=== PATIENT | male | born 1955 | race Hispanic/Latino ===

== ENCOUNTER → 2018-04-26 | Day surgery (SDC) | payer BC ==
[~2018-04-26] MED LIST: ATORVASTATIN CA10 MG PO; DOXAZOSIN MESYLA1 MG PO; FENTANYL CITRATE/PF 100MCG/2 ML INJ ONE; FINASTERIDE5 MG PO; GLIMEPIRIDE4 MG PO; HYOSCYAMINE SULFATE 0.5 MG/ML INJ ONE; KEFLEX500 MG PO; LANTUS100 UNITS/ SQ; LEVEMIR100 UNIT/1 SC; LISINOPRIL40 MG PO; METOPROLOL SUCC25 MG PO; METOPROLOL TART25 MG PO; MIDAZOLAM HCL 2 MG/2 ML VIAL ONE; NOVOLOG100 UNITS/ SQ; PROPOFOL IV EMULSION 10 MG/ML 50 ML VIAL ONE; SIMVASTATIN40 MG PO; TAMSULOSIN HCL0.4 MG PO
[2018-04-26 13:35] VITALS: BP 104/76
--- NOTE | 2018-04-26 13:46 | Operative Report ---
DATE OF PROCEDURE: April 26, 2018 REFERRING PHYSICIAN: Dr. Debbie Shirley. PROCEDURE PERFORMED: Colonoscopy and polypectomy. INDICATIONS FOR COLONOSCOPY: Surveillance colonoscopy, personal history of colon polyps. MEDICATION: Patient was done under MAC. Please see anesthesiologist's note. PROCEDURE: With patient in left lateral decubitus position, flexible fiberoptic Olympus colonoscope was inserted into the rectum with ease and advanced all the way to the cecum. It was then withdrawn slowly. Mucosa overlying the cecum, ascending colon and transverse colon appeared to be within normal limits. Diverticulosis was noted in the left colon and more prominent in the sigmoid colon. Two minute polyps were hot biopsied from the sigmoid colon. The rectum appeared to be within normal limits. The scope was then retroflexed into the distal rectum and small internal hemorrhoids were noted, none of which was actively bleeding. The scope was then straightened out. It was subsequently withdrawn. Patient tolerated the procedure well. IMPRESSIONS 1. Diverticulosis. 2. Sigmoid colon polyps x2, hot biopsied. 3. Internal hemorrhoids, none actively bleeding. PLAN: Follow up histology. Initiate high-fiber, low-fat diet. Initiate high-fiber supplement. Patient might benefit from a followup colonoscopy in 3 to 5 years. Job#: [id number] TA cc:DEBBIE SHIRLEY MD,
== END | disposition home or self-care (01) ==
LOC: ENDO 09:00
PROVIDERS: ATTEND Internal Medicine Gastroenterology
DX: Z09 Encounter for follow-up examination after completed treatment for conditions other than malignant neoplasm (principal); K63.5 Polyp of colon; K57.30 Diverticulosis of large intestine without perforation or abscess without bleeding; K64.8 Other hemorrhoids; I10 Essential (primary) hypertension; E11.9 Type 2 diabetes mellitus without complications; I44.0 Atrioventricular block, first degree; E78.00 Pure hypercholesterolemia, unspecified; Z01.810 Encounter for preprocedural cardiovascular examination; Z79.4 Long term (current) use of insulin; Z68.34 Body mass index [BMI] 34.0-34.9, adult
CPT/HCPCS: 36415; 45384; 82948; 93005; J1980; J2250; 45378

== ENCOUNTER → 2018-11-06 | Day surgery (SDC) | payer BC ==
[2018-10-30 09:10] LABS: BASOPHILS % 0.4 % (0.0-1.0); EOSINOPHILS # (AUTO) 0.2 (0.0-0.4); EOSINOPHILS % 3.4 % (0.0-6.0); HEMATOCRIT 46.2 % (38.2-49.6); HEMOGLOBIN 15.2 g/dL (14.0-18.0); LYMPHOCYTES # (AUTO) 2.7 (1.0-3.2); LYMPHOCYTES % 39.1 % (18.0-39.1); MEAN CORPUSCULAR HEMOGLOBIN 28.5 pg (28-32); MEAN CORPUSCULAR HGB CONC 32.9 g/dL (31-35); MEAN CORPUSCULAR VOLUME 86.7 fL (81-99); MONOCYTES # (AUTO) 0.4 (0.2-0.8); MONOCYTES % 6.4 % (4.4-11.3); NEUTROPHILS # (AUTO) 3.5 (2.1-6.9); NEUTROPHILS % 50.6 % (38.7-80.0); PLATELET COUNT 191 x10e3/uL (140-360); RED BLOOD COUNT 5.33 x10e6/uL (4.3-5.7); RED CELL DISTRIBUTION WIDTH 14.5 % (11.7-14.4)
[2018-10-30 09:40] LABS: ANION GAP 14.1 mmol/L (8-16); BLOOD UREA NITROGEN 15 mg/dL (7-26); BUN/CREATININE RATIO 19 (6-25); CALCIUM 9.1 mg/dL (8.4-10.2); CARBON DIOXIDE 23 mmol/L (22-29); CHLORIDE 103 mmol/L (98-107); EST GLOMERULAR FILTRATION RATE > 60 ML/MIN (60-); GLUCOSE 167 mg/dL (74-118); POTASSIUM 4.1 mmol/L (3.5-5.1); SODIUM 136 mmol/L (136-145)
--- NOTE | 2018-10-30 09:43 | Diagnostic Imaging Report ---
EXAM: CHEST 2 VIEWS, PA and lateral DATE: 10/30/2018 Time stamp on exam: 9:00 AM INDICATION: Preoperative for hernia repair COMPARISON: None FINDINGS: LINES/TUBES: Sternotomy sutures and a mediastinal clip are present. LUNGS: No consolidations or edema. PLEURA: No effusions or pneumothorax. HEART AND MEDIASTINUM: Normal size and contour. Tortuous thoracic aorta. BONES AND SOFT TISSUES: No acute findings. IMPRESSION: No acute thoracic abnormality. Signed by: Dr. Jose Schaeffer DO on 10/30/2018 9:40 AM
[~2018-11-06] MED LIST changes: +ASPIR 8181 MG PO; +BUPIVACAINE 0.25%/EPI 30ML SDV INJ ONE; +CLOPIDOGREL75 MG PO; +DEXAMETHASONE SOD PHOS INJ 4 MG/ML VIAL ONE; +GLYCOPYRROLATE INJ 1MG/ 5 ML SYR ONE; +HYDROCODONE/APAP 7.5MG-325MG 1 EA TAB ONE; -HYOSCYAMINE SULFATE 0.5 MG/ML INJ ONE; +IBUPROFEN 800MG/ 250ML 250 ML IV ONE; +LIDOCAINE HCL 1% LOCAL INJ 20 ML VIAL ONE; +LIDOCAINE HCL 2% LOCAL INJ 5 ML SDV VIAL INJ ONE; +NEOSTIGMINE 5 MG/5ML SYR ONE; +NOVOLOG100 UNIT/1 SQ; +ONDANSETRON HCL INJ 2MG/ML 2ML 2 MG/ML VIAL ONE; +PHENYLEPHRINE HCL 1% 10 MG/ML VIAL ONE; +PROPOFOL IV EMULSION 10 MG/ML 20 ML VIAL ONE; -PROPOFOL IV EMULSION 10 MG/ML 50 ML VIAL ONE; +SEVOFLURANE INHAL SOLN 250 ML PEN BTL ONE; +TRULICITY INJ; +VALACYCLOVIR500 MG PO; +[UNRECOGNIZED DRUG - OTHER] INJ
--- OUTSIDE RECORDS SUMMARY | 2018-11-06 06:22 | XMS REPORT ---
[facility] Address Unknown Phone Unavailable Care Team Providers Care Leather Lacer Name Role Phone Ana WAYNE Unavailable Unavailable Payers Payer Name Policy Type Policy Number Effective Date Expiration Date Problems This patient has no known problems. Allergies, Adverse Reactions, Alerts Allergy Name Allergy Type Status Severity Reaction(s) Onset Date Inactive Date Treating Clinician Comments No Known Allergies DA Active U 2018-09-13 00:00:00 No Known Allergies DA Active U 2018-07-30 00:00:00 No Known Allergies DA Active U 2017-09-28 00:00:00 Medications This patient has no known medications. Results Test Description Test Time Test Comments Text Results Atomic Results Result Comments CHEST 2 VIEWS 2018-10-30 09:39:00 [place] [address] Patient Name: MERCEDEZ KOWALSKI MR #: [id number] : 1955 Age/Sex: 63/M Req #: [id number] Adm Physician: Ordered by: VALENTINO WAYNE MD Report #: [id number] Location: OR Room/Bed: Procedure: [id number] DX/CHEST 2 VIEWS Exam Date: 10/30/18 Exam Time: 0900 REPORT STATUS: Signed EXAM: CHEST 2 VIEWS, PA and lateral DATE: 10/30/2018 Time s tamp on exam: 9:00 AM INDICATION: Preoperative for hernia repair COMPARISON: None FINDINGS: LINES/TUBES: Sternotomy sutures and a mediastinal clip are present. LUNGS: No consolidations or edema. PLEURA: No effusions or pneumothorax. HEART AND MEDIASTINUM: Normal size and contour. Tortuous thoracic aorta. BONES AND SOFT TISSUES: No acute findings. IMPRESSION: No acute thoracic abnormality. Signed by: Dr. Jose Wilson DO on 10/30/2018 9:40 AM Dictated By: JOSE WILSON DO 9 Transcribed By: CHAO on 10/30/18939 COPY TO: VALENTINO WAYNE MD BASIC METABOLIC PANEL 2018-09-13 13:04:00 SODIUM (test code=NA) 138 mmol/L 136-145 POTASSIUM (test code=K) 4.2 mmol/L 3.5-5.1 CHLORIDE (test code=CL) 106.0 mmol/L 98-107 CARBON DIOXIDE (test code=CO2) 23.0 mmol/L 21-32 ANION GAP (test code=GAP) 13.2 10-20 GLUCOSE (test code=GLU) 236 mg/dL 74-106 BLOOD UREA NITROGEN (test code=BUN) 14 mg/dL 7-18 GLOMERULAR FILTRATION RATE (test code=GFR) 56 mL/min >=60 Estimated GFR by using Modified MDRD formula.Chronic kidney disease is defined as either kidney damageor GFR <60 mL/min/1.73 m2 for >3 months. CREATININE (test code=CREAT) 1.30 mg/dL 0.7-1.3 BUN/CREATININE RATIO (test code=BUN/CREA) 10.8 10-20 CALCIUM (test code=CA) 9.5 mg/dL 8.5-10.1 - XR KNEE 3 V [id number] 13:03:00 FAX: Payal Hudson [phone] [place]: B St: REG FAX: Jaren Flores MD [phone] FAX: Lorenzo Vega Name: MERCEDEZ KOWALSKI [facility] : 1955 Age/S: 63/M [address] [facility] Unit #: [id number] Loc: [place], [place] [address] Phys: Khan,Patti J DIAL PAINTER Acct: [id number] Dis Date: Status: REG ER PH ONE #: [phone] Exam Date: 09/13/2018 1249 FAX #: [phone] Reason: left medial knee pain and swelling after fall o EXAMS: CPT CODE: [id number] XR KNEE 3 [place] [address] HISTORY: Left medial knee pain and swelling after fall. COMPARISON: None availab le. 3 views of the left knee: No acute fracture or d islocation. Knee joint is preserved in all 3 compartments. Articular surfa dmitry are well marginated. No joint fluid is noted. Bone mineralization and soft tissues are normal. Vascular calcifications. No joint fluid. IMPRESSION: No acute fracture or dislocation. Joint sp aces are preserved. Electronically Signed by Phil Lu on at 1303 Reported and signed by: Flaquito Lyon CC: Payal Cowart MD; Jaren Miranda; Lorenzo Vega MD Technologist: RT ADELE(Dami) [facility] Date/Time/By: 09/13/2018 (3404) : By: [email or web address] Orig Print D/T: S: 09/13/2018 (0815) PAGE 1 Signed Report BASIC METABOLIC [id number] 12:59:00* Test Item Value Reference Range Comments SODIUM (test code=NA) 138 mmol/L 136-145 POTASSIUM (test code=K) 4.2 mmol/L 3.5-5.1 CHLORIDE (test code=CL) 106.0 mmol/L 98-107 CARBON DIOXIDE (test code=CO2) mmol/L 21-32 ANION GAP (test code=GAP) 10-20 GLUCOSE (test code=GLU) mg/dL 74-106 BLOOD UREA NITROGEN (test code=BUN) mg/dL 7-18 GLOMERULAR FILTRATION RATE (test code=GFR) mL/min >=60 CREATININE (test code=CREAT) mg/dL 0.7-1.3 BUN/CREATININE RATIO (test code=BUN/CREA) 10-20 CALCIUM (test code=CA) mg/dL 8.5-10.1 PROTHROMBIN [id number] 12:50:00* Test Item Value Reference Range Comments PROTHROMBIN TIME PATIENT (test code=PTP) 12.3 seconds 9.0-14.0 INTERNATIONAL NORMAL RATIO (test code=INR) 1.0 0.8-1.2 The therapeutic range for oral anticoagulant therapy formost indications is an international normalized ratio (INR)of between 2.0 and 3.0. The recommended therapeutic INRrange for various clinical situations is listed below: Clinical Situation INR range Pulmonary e mbolism treatment (2.0-3.0)Venous thrombosis treatmentVenous thrombosis prophylaxis (high risk surgery)Prevention of systemic embolism from: Acute myocardial infarction Valvular heart disease Atrial fibrillation Mechanical prosthetic heart valves (2.5-3.5) IS PATIENT ON ANTICOAGULANTS? YLIST ANTICOAGULANTS plavixLIST ANTICOAGULANTS ELIOT VIXTHROMBOPLASTIN TIME [id number] 12:50:00* Test Item Value Reference Range Comments THROMBOPLASTIN TIME PARTIAL (test code=PTT) 31.7 seconds 25.0-36.5 IS PATIENT ON ANTICOAGULANTS? YLIST ANTICOAGULANTS plavixLIST ANTICOAGULANTS ELIOT VIXCBC W/AUTO [id number] 12:39:00* Test Item Value Reference Range Comments WHITE BLOOD CELL (test code=WBC) 9.5 K/mm3 4.5-12.5 RED BLOOD CELL (test code=RBC) 5.46 mill/mm3 4.0-5.8 HEMOGLOBIN (test code=HGB) 15.3 gram/dL 13.0-17.5 HEMATOCRIT (test code=HCT) 47.5 % 42.0-52.0 MEAN CELL VOLUME (test code=MCV) 87.0 fL 80-98 MEAN CELL HGB (test code=MCH) 28.0 picogram 27.0-33.0 MEAN CELL HGB CONCETRATION (test code=MCHC) 32.2 gram/dL 33.0-36.0 RED CELL DISTRIBUTION WIDTH (test code=RDW) 13.7 % 11.6-16.2 RED CELL DISTRIBUTION WIDTH SD (test code=RDW-SD) 43.7 fL 37.0-51.0 PLATELET COUNT (test code=PLT) 202 K/mm3 150-450 MEAN PLATELET VOLUME (test code=MPV) 10.6 fL 6.7-11.0 NEUTROPHIL % (test code=NT%) 55.0 % 39.0-69.0 IMMATURE GRANULOCYTE % (test code=IG%) 0.5 % 0.0-5.0 LYMPHOCYTE % (test code=LY%) 34.9 % 25.0-55.0 MONOCYTE % (test code=MO%) 6.2 % 0.0-10.0 EOSINOPHIL % (test code=EO%) 3.0 % 0.0-5.0 BASOPHIL % (test code=BA%) 0.4 % 0.0-1.0 NUCLEATED RBC % (test code=NRBC%) 0.0 % 0-0 NEUTROPHIL # (test code=NT#) 5.21 K/mm3 1.8-7.7 IMMATURE GRANULOCYTE # (test code=IG#) 0.05 x10 3/uL 0-0.03 LYMPHOCYTE # (test code=LY#) 3.31 K/mm3 1.0-5.0 MONOCYTE # (test code=MO#) 0.59 K/mm3 0-0.8 EOSINOPHIL # (test code=EO#) 0.28 K/mm3 0.0-0.5 BASOPHIL # (test code=BA#) 0.04 K/mm3 0.0-0.2 NUCLEATED RBC # (test code=NRBC#) 0.00 K/mm3 0.0-0.1 MANUAL DIFF REQUIRED (test code=MDIFF) NO CBC W/AUTO [id number] 12:38:00* Test Item Value Reference Range Comments WHITE BLOOD CELL (test code=WBC) K/mm3 4.5-12.5 RED BLOOD CELL (test code=RBC) mill/mm3 4.0-5.8 HEMOGLOBIN (test code=HGB) 15.3 gram/dL 13.0-17.5 HEMATOCRIT (test code=HCT) 47.5 % 42.0-52.0 MEAN CELL VOLUME (test code=MCV) fL 80-98 MEAN CELL HGB (test code=MCH) picogram 27.0-33.0 MEAN CELL HGB CONCETRATION (test code=MCHC) gram/dL 33.0-36.0 RED CELL DISTRIBUTION WIDTH (test code=RDW) % 11.6-16.2 RED CELL DISTRIBUTION WIDTH SD (test code=RDW-SD) fL 37.0-51.0 PLATELET COUNT (test code=PLT) K/mm3 150-450 MEAN PLATELET VOLUME (test code=MPV) fL 6.7-11.0 NEUTROPHIL % (test code=NT%) % 39.0-69.0 IMMATURE GRANULOCYTE % (test code=IG%) % 0.0-5.0 LYMPHOCYTE % (test code=LY%) % 25.0-55.0 MONOCYTE % (test code=MO%) % 0.0-10.0 EOSINOPHIL % (test code=EO%) % 0.0-5.0 BASOPHIL % (test code=BA%) % 0.0-1.0 NEUTROPHIL # (test code=NT#) K/mm3 1.8-7.7 LYMPHOCYTE # (test code=LY#) K/mm3 1.0-5.0 MONOCYTE # (test code=MO#) K/mm3 0-0.8 EOSINOPHIL # (test code=EO#) K/mm3 0.0-0.5 BASOPHIL # (test code=BA#) K/mm3 0.0-0.2 [id number] 15:58:00* Test Item Value Reference Range Comments GLUBED (test code=GLUBED) 155 MG/DL 70-110 Performed by certified airline radio operator at [facility] [id number] 11:45:00* Test Item Value Reference Range Comments GLUBED (test code=GLUBED) 128 MG/DL 70-110 Performed by certified airline radio operator at [facility] [id number] 09:02:00* Test Item Value Reference Range Comments GLUBED (test code=GLUBED) 202 MG/DL 70-110 Performed by certified airline radio operator at [facility] - XR CHEST 1 [id number] 08:07:00 FAX: Payal Hudson [phone] [place]: St: ADM FAX: Jaren Flores MD [phone] FAX: Toni Vernon I [phone] FAX: Britany Benavides [phone] Name: QUINTIN KOWALSKI NOAH [facility] : 1955 Age/S: 63/M [address] [place] [address] Unit #: [id number] Loc: G.[address] [place] [address] Phys: Dorie Benavides NP Acct: [id number] Dis Date: Status: ADM IN PHONE #: [phone] Exam D ate: 08/04/2018 0536 FAX #: [phone] Reason: P ost CV Surgery EXAMS: CPT CODE: [id number] XR CHEST 1 V 08864 - XR CHEST 1 V 08/04/2018 5:00 AM Orde ring Physician: Dorie Benavides NP CLINICAL HISTORY: CABG; TECHNIQUE: A single AP view of the chest was obtained. COMPARISON: August 03, 2018. FINDINGS: Small left pleural effusion is noted with left midlung and basilar subsegmental ate lectasis. The right lung is clear. No radiographically detectable pneumo thorax is present. The heart is enlarged. Median sternotomy wir es are present. No acute osseous abnormality is evident. IMPRESSION: 1. Stable exam. SL: K58-H at 0807 Reported and signed by: Ruben hawkins M.D. CC: Payal Cowart M.D.; Jaren Miranda MD; Toni gomes MD; Dorie Nelson chnologist: Alondra Ellison, RT(R); Isaura Cavanaugh RT(R) Trnscrd Date/ Time/By: 08/04/2018 (0807) : By: [email or web address] Orig Print D/T: S: 08/05/19 (6710) PAGE 1 Signed Report BASIC METABOLIC [id number] 04:46:00* Test Item Value Reference Range Comments SODIUM (test code=NA) 137 mEq/L 134-147 POTASSIUM (test code=K) 3.6 mEq/L 3.4-5.0 CHLORIDE (test code=CL) 104 mEq/L 100-108 CARBON DIOXIDE (test code=CO2) 25 mEq/L 21-33 ANION GAP (test code=GAP) 12 0-20 GLUCOSE (test code=GLU) 167 mg/dL 70-110 BLOOD UREA NITROGEN (test code=BUN) 14 mg/dL 7-18 GLOMERULAR FILTRATION RATE (test code=GFR) 113.9 80-90 Units of measure=ml/min/1.73 m2 CREATININE (test code=CREAT) 0.7 mg/dL 0.6-1.3 CALCIUM (test code=CA) 8.2 mg/dL 8.0-10.5 [id number] 04:46:00* Test Item Value Reference Range Comments MAGNESIUM (test code=MAG) 2.40 mg/dL 1.8-2.4 CBC W/AUTO [id number] 04:24:00* Test Item Value Reference Range Comments WHITE BLOOD CELL (test code=WBC) 11.42 x10 3/uL 4.5-11.0 RED BLOOD CELL (test code=RBC) 4.17 x10 6/uL 4.00-5.60 HEMOGLOBIN (test code=HGB) 12.4 g/dL 12.5-16.9 HEMATOCRIT (test code=HCT) 38.8 % 37.5-50.7 MEAN CELL VOLUME (test code=MCV) 93.0 fL 81.0-99.0 MEAN CELL HGB (test code=MCH) 29.7 pg 27.0-33.0 MEAN CELL HGB CONCETRATION (test code=MCHC) 32.0 g/dL 33.0-37.0 RED CELL DISTRIBUTION WIDTH CV (test code=RDW) 13.0 % 11.5-14.5 RED CELL DISTRIBUTION WIDTH SD (test code=RDW-SD) 44.2 fL 37.0-54.0 PLATELET COUNT (test code=PLT) 192 x10 3/uL 150-400 MEAN PLATELET VOLUME (test code=MPV) 10.5 fL 7.0-9.0 NEUTROPHIL % (test code=NT%) 74.9 % 56.0-77.0 IMMATURE GRANULOCYTE % (test code=IG%) 0.4 % 0.0-2.0 LYMPHOCYTE % (test code=LY%) 15.1 % 14.0-32.0 MONOCYTE % (test code=MO%) 8.4 % 4.8-9.0 EOSINOPHIL % (test code=EO%) 1.1 % 0.3-3.7 BASOPHIL % (test code=BA%) 0.1 % 0.0-2.0 NUCLEATED RBC % (test code=NRBC%) 0.0 % 0-0 NEUTROPHIL # (test code=NT#) 8.57 x10 3/uL 2.0-7.6 IMMATURE GRANULOCYTE # (test code=IG#) 0.04 x10 3/uL 0.00-0.03 LYMPHOCYTE # (test code=LY#) 1.72 x10 3/uL 1.0-3.8 MONOCYTE # (test code=MO#) 0.96 x10 3/uL 0.1-0.8 EOSINOPHIL # (test code=EO#) 0.12 x10 3/uL 0.0-0.2 BASOPHIL # (test code=BA#) 0.01 x10 3/uL 0.0-0.2 NUCLEATED RBC # (test code=NRBC#) 0.00 x10 3/uL 0.0-0.1 MANUAL DIFF REQUIRED (test code=MDIFF) NO [id number] 22:02:00* Test Item Value Reference Range Comments GLUBED (test code=GLUBED) 176 MG/DL 70-110 Performed by certified airline radio operator at [facility] [id number] 16:58:00* Test Item Value Reference Range Comments GLUBED (test code=GLUBED) 182 MG/DL 70-110 Performed by certified airline radio operator at [facility] [id number] 11:42:00* Test Item Value Reference Range Comments GLUBED (test code=GLUBED) 216 MG/DL 70-110 Performed by certified airline radio operator at [facility] [id number] 08:15:00* Test Item Value Reference Range Comments GLUBED (test code=GLUBED) 174 MG/DL 70-110 Performed by certified airline radio operator at [facility] - XR CHEST 1 [id number] 07:49:00 FAX: Payal Hudson [phone] [place]: St: ADM FAX: Jaren Flores MD [phone] FAX: Toni Vernon I [phone] FAX: Britany Benavides [phone] Name: QUINTIN KOWALSKI [facility] : 1955 Age/S: 63/M [address] [place] [address] Unit #: [id number] Loc: G.[address] [place] [address] Phys: Dorie Benavides DIAL PAINTER Acct: [id number] Dis Date: Status: ADM IN PHONE #: [phone] Exam D ate: 08/03/2018 0626 FAX #: [phone] Reason: C ardiac Surgery Post Op EXAMS: CPT CODE: [id number] XR CHEST 1 V 00796 - XR CHEST 1 V 08/03/2018 5:00 AM Orde ring Physician: Dorie Benavides NP CLINICAL HISTORY: CABG; TECHNIQUE: A single AP view of the chest was obtained. COMPARISON: August 02, 2017. FINDINGS: Improving bibasilar subsegmental atelectasis is noted. Small left pleural effusion may be present. No radiographically detectable pneumothorax is present. The heart is enlarged. Median sternotomy wires are present. Ri ght internal jugular central venous catheter has been removed. No acute osseous abnormality is evident. IMPRESSION: 1. Improving bibasilar subsegmental atelectasis. 2. Removal of right internal jugular central venous catheter. SL: TRINIH at 0749 Reported and signed by: Ruben Mejia M.D. CC: Payal Cowart M.D.; Jaren Miranda MD; Toni Foster MD; Dorie Benavides NP Technolo gist: RT Janeth(R) Trnscrd Date/Time/B y: 08/03/2018 (0749) : By: [email or web address] Orig Print D/T: S: 08/03/2018 (07 52) PAGE 1 Signed Report BASIC METABOLIC [id number] 05:22:00* Test Item Value Reference Range Comments SODIUM (test code=NA) 135 mEq/L 134-147 POTASSIUM (test code=K) 4.1 mEq/L 3.4-5.0 CHLORIDE (test code=CL) 103 mEq/L 100-108 CARBON DIOXIDE (test code=CO2) 24 mEq/L 21-33 ANION GAP (test code=GAP) 12 0-20 GLUCOSE (test code=GLU) 185 mg/dL 70-110 BLOOD UREA NITROGEN (test code=BUN) 18 mg/dL 7-18 GLOMERULAR FILTRATION RATE (test code=GFR) 113.9 80-90 Units of measure=ml/min/1.73 m2 CREATININE (test code=CREAT) 0.7 mg/dL 0.6-1.3 CALCIUM (test code=CA) 8.3 mg/dL 8.0-10.5 [id number] 05:22:00* Test Item Value Reference Range Comments MAGNESIUM (test code=MAG) 2.80 mg/dL 1.8-2.4 CBC W/AUTO [id number] 04:51:00* Test Item Value Reference Range Comments WHITE BLOOD CELL (test code=WBC) 15.82 x10 3/uL 4.5-11.0 RED BLOOD CELL (test code=RBC) 4.32 x10 6/uL 4.00-5.60 HEMOGLOBIN (test code=HGB) 12.8 g/dL 12.5-16.9 HEMATOCRIT (test code=HCT) 40.7 % 37.5-50.7 MEAN CELL VOLUME (test code=MCV) 94.2 fL 81.0-99.0 MEAN CELL HGB (test code=MCH) 29.6 pg 27.0-33.0 MEAN CELL HGB CONCETRATION (test code=MCHC) 31.4 g/dL 33.0-37.0 RED CELL DISTRIBUTION WIDTH CV (test code=RDW) 12.9 % 11.5-14.5 RED CELL DISTRIBUTION WIDTH SD (test code=RDW-SD) 44.9 fL 37.0-54.0 PLATELET COUNT (test code=PLT) 175 x10 3/uL 150-400 MEAN PLATELET VOLUME (test code=MPV) 10.8 fL 7.0-9.0 NEUTROPHIL % (test code=NT%) 80.6 % 56.0-77.0 IMMATURE GRANULOCYTE % (test code=IG%) 0.5 % 0.0-2.0 LYMPHOCYTE % (test code=LY%) 11.5 % 14.0-32.0 MONOCYTE % (test code=MO%) 7.0 % 4.8-9.0 EOSINOPHIL % (test code=EO%) 0.3 % 0.3-3.7 BASOPHIL % (test code=BA%) 0.1 % 0.0-2.0 NUCLEATED RBC % (test code=NRBC%) 0.0 % 0-0 NEUTROPHIL # (test code=NT#) 12.75 x10 3/uL 2.0-7.6 IMMATURE GRANULOCYTE # (test code=IG#) 0.08 x10 3/uL 0.00-0.03 LYMPHOCYTE # (test code=LY#) 1.82 x10 3/uL 1.0-3.8 MONOCYTE # (test code=MO#) 1.11 x10 3/uL 0.1-0.8 EOSINOPHIL # (test code=EO#) 0.05 x10 3/uL 0.0-0.2 BASOPHIL # (test code=BA#) 0.01 x10 3/uL 0.0-0.2 NUCLEATED RBC # (test code=NRBC#) 0.00 x10 3/uL 0.0-0.1 MANUAL DIFF REQUIRED (test code=MDIFF) NO [id number] 22:25:00* Test Item Value Reference Range Comments GLUBED (test code=GLUBED) 178 MG/DL 70-110 Performed by certified airline radio operator at [facility] [id number] 15:55:00* Test Item Value Reference Range Comments GLUBED (test code=GLUBED) 203 MG/DL 70-110 Performed by certified airline radio operator at [facility] [id number] 14:26:00* Test Item Value Reference Range Comments GLUBED (test code=GLUBED) 139 MG/DL 70-110 Performed by certified airline radio operator at [facility] [id number] 14:23:00* Test Item Value Reference Range Comments GLUBED (test code=GLUBED) 127 MG/DL 70-110 Performed by certified airline radio operator at [facility] [id number] 14:23:00* Test Item Value Reference Range Comments GLUBED (test code=GLUBED) 62 MG/DL 70-110 Performed by certified airline radio operator at [facility] [id number] 14:22:00* Test Item Value Reference Range Comments GLUBED (test code=GLUBED) 182 MG/DL 70-110 Performed by certified airline radio operator at [facility] RENAL FUNCTION [id number] 11:47:00* Test Item Value Reference Range Comments SODIUM (test code=NA) 132 mEq/L 134-147 POTASSIUM (test code=K) 4.6 mEq/L 3.4-5.0 CHLORIDE (test code=CL) 103 mEq/L 100-108 CARBON DIOXIDE (test code=CO2) 24 mEq/L 21-33 ANION GAP (test code=GAP) 10 0-20 GLUCOSE (test code=GLU) 201 mg/dL 70-110 BLOOD UREA NITROGEN (test code=BUN) 22 mg/dL 7-18 GLOMERULAR FILTRATION RATE (test code=GFR) 67.6 80-90 Units of measure=ml/min/1.73 m2 CREATININE (test code=CREAT) 1.1 mg/dL 0.6-1.3 ALBUMIN (test code=ALB) 2.90 g/dL 3.4-5.0 CALCIUM (test code=CA) 8.3 mg/dL 8.0-10.5 PHOSPHOROUS (test code=PHOS) 2.5 mg/dL 2.5-4.9 [id number] 07:58:00* Test Item Value Reference Range Comments GLUBED (test code=GLUBED) 207 MG/DL 70-110 Performed by certified airline radio operator at [facility] - XR CHEST 1 [id number] 07:21:00 FAX: Payal Hudson [phone] [place]: St: ADM FAX: Jaren Flores MD [phone] FAX: Toni Vernon I [phone] FAX: Britany Benavides [phone] Name: QUINTIN KOWALSKI [facility] : 1955 Age/S: 63/M [address] [place] [address] Unit #: [id number] Loc: G.[address] [place] [address] Phys: Dorie Benavides DIAL PAINTER Acct: [id number] Dis Date: Status: ADM IN PHONE #: [phone] Exam D ate: 08/02/2018 0541 FAX #: [phone] Reason: C ardiac Surgery Post Op EXAMS: CPT CODE: [id number] XR CHEST 1 V 36940 - XR CHEST 1 V 08/02/2018 5:00 AM Orde ring Physician: Dorie Benavides NP CLINICAL HISTORY: CABG; TECHNIQUE: A single AP view of the chest was obtained. COMPARISON: August 01, 2018. FINDINGS: Small joede ateral pleural effusions and bibasilar subsegmental atelectasis are seen. No radiographically detectable pneumothorax is present. T he heart is enlarged. Right internal jugular vascular sheath remains in p lace. Median sternotomy wires are present. No acute osseous abnormality is evident. IMPRESSION: 1. No signific ant change. SL: CY-H * * at 0721 Reported and signed by: Ruben Mejia M.D. CC: Payal Cowart M.D.; Jaren Miranda MD; Toni Foster MD; Dorie Benavides NP Technologist: RT Janeth(Dami) Trnscrd Date/Time/By: 08/02/2018 (0721) : By: [email or web address] Orig Print D/T: S: 08/02/2018 (8522) PAGE 1 Signed Report BASIC METABOLIC [id number] 03:52:00* Test Item Value Reference Range Comments SODIUM (test code=NA) 134 mEq/L 134-147 POTASSIUM (test code=K) 5.2 mEq/L 3.4-5.0 CHLORIDE (test code=CL) 104 mEq/L 100-108 CARBON DIOXIDE (test code=CO2) 24 mEq/L 21-33 ANION GAP (test code=GAP) 11 0-20 GLUCOSE (test code=GLU) 189 mg/dL 70-110 BLOOD UREA NITROGEN (test code=BUN) 21 mg/dL 7-18 GLOMERULAR FILTRATION RATE (test code=GFR) 61.1 80-90 Units of measure=ml/min/1.73 m2 CREATININE (test code=CREAT) 1.2 mg/dL 0.6-1.3 CALCIUM (test code=CA) 7.8 mg/dL 8.0-10.5 HEPATIC FUNCTION [id number] 03:52:00* Test Item Value Reference Range Comments TOTAL PROTEIN (test code=PROT) 6.2 g/dL 6.4-8.2 ALBUMIN (test code=ALB) 3.10 g/dL 3.4-5.0 BILIRUBIN TOTAL (test code=BILT) 1.60 mg/dL 0.0-1.0 BILIRUBIN DIRECT (test code=BILD) 0.50 MG/DL 0.0-0.30 BILIRUBIN INDIRECT (test code=BILIND) 1.10 MG/DL SGOT/AST (test code=AST) 38 IUnit/L 15-37 SGPT/ALT (test code=ALT) 21 IUnit/L 15-65 ALKALINE PHOSPHATASE TOTAL (test code=ALKP) 61 IUnit/L 20-125 [id number] 03:52:00* Test Item Value Reference Range Comments MAGNESIUM (test code=MAG) 2.70 mg/dL 1.8-2.4 CBC W/AUTO [id number] 03:30:00* Test Item Value Reference Range Comments WHITE BLOOD CELL (test code=WBC) 21.35 x10 3/uL 4.5-11.0 RED BLOOD CELL (test code=RBC) 4.34 x10 6/uL 4.00-5.60 HEMOGLOBIN (test code=HGB) 13.1 g/dL 12.5-16.9 HEMATOCRIT (test code=HCT) 40.6 % 37.5-50.7 MEAN CELL VOLUME (test code=MCV) 93.5 fL 81.0-99.0 MEAN CELL HGB (test code=MCH) 30.2 pg 27.0-33.0 MEAN CELL HGB CONCETRATION (test code=MCHC) 32.3 g/dL 33.0-37.0 RED CELL DISTRIBUTION WIDTH CV (test code=RDW) 13.2 % 11.5-14.5 RED CELL DISTRIBUTION WIDTH SD (test code=RDW-SD) 45.1 fL 37.0-54.0 PLATELET COUNT (test code=PLT) 193 x10 3/uL 150-400 MEAN PLATELET VOLUME (test code=MPV) 10.6 fL 7.0-9.0 NEUTROPHIL % (test code=NT%) 82.2 % 56.0-77.0 IMMATURE GRANULOCYTE % (test code=IG%) 0.4 % 0.0-2.0 LYMPHOCYTE % (test code=LY%) 8.7 % 14.0-32.0 MONOCYTE % (test code=MO%) 8.6 % 4.8-9.0 EOSINOPHIL % (test code=EO%) 0.0 % 0.3-3.7 BASOPHIL % (test code=BA%) 0.1 % 0.0-2.0 NUCLEATED RBC % (test code=NRBC%) 0.0 % 0-0 NEUTROPHIL # (test code=NT#) 17.54 x10 3/uL 2.0-7.6 IMMATURE GRANULOCYTE # (test code=IG#) 0.09 x10 3/uL 0.00-0.03 LYMPHOCYTE # (test code=LY#) 1.85 x10 3/uL 1.0-3.8 MONOCYTE # (test code=MO#) 1.83 x10 3/uL 0.1-0.8 EOSINOPHIL # (test code=EO#) 0.01 x10 3/uL 0.0-0.2 BASOPHIL # (test code=BA#) 0.03 x10 3/uL 0.0-0.2 NUCLEATED RBC # (test code=NRBC#) 0.00 x10 3/uL 0.0-0.1 MANUAL DIFF REQUIRED (test code=MDIFF) NO [id number] 20:37:00* Test Item Value Reference Range Comments GLUBED (test code=GLUBED) 172 MG/DL 70-110 Performed by certified airline radio operator at [facility] [id number] 18:30:00* Test Item Value Reference Range Comments GLUBED (test code=GLUBED) 131 MG/DL 70-110 Performed by certified airline radio operator at [facility] ARTERIAL BLOOD [id number] 15:47:00* Test Item Value Reference Range Comments ARTERIAL BLOOD GAS PH (test code=PHA) 7.441 7.35-7.45 ARTERIAL BLOOD GAS PCO2 (test code=PCO2A) 38.2 mmHg 35-45 ARTERIAL BLOOD GAS PO2 (test code=PO2A) 89 mmHg 80-100 BICARBONATE TOTAL HCO3 (test code=HCO3) 25.9 mmol/L 22.0-26.0 BASE EXCESS (test code=RENE) 2.0 mmol/L -4-4 ABG O2 SATURATION (test code=SATA) 97 % 90-100 ABG DELIVERY (test code=JODI) [employer] ABG TEMPERATURE (test code=TEMPA) 98.9 F ABG SITE (test code=SITEA) Art line TCO2 ARTERIAL (test code=TCO2A) 27 [id number] 15:07:00* Test Item Value Reference Range Comments GLUBED (test code=GLUBED) 108 MG/DL 70-110 Performed by certified airline radio operator at [facility] ARTERIAL BLOOD [id number] 11:26:00* Test Item Value Reference Range Comments ARTERIAL BLOOD GAS PH (test code=PHA) 7.460 7.35-7.45 ARTERIAL BLOOD GAS PCO2 (test code=PCO2A) 39.6 mmHg 35-45 ARTERIAL BLOOD GAS PO2 (test code=PO2A) 104 mmHg 80-100 BICARBONATE TOTAL HCO3 (test code=HCO3) 28.1 mmol/L 22.0-26.0 BASE EXCESS (test code=RENE) 4.0 mmol/L -4-4 ABG O2 SATURATION (test code=SATA) 98 % 90-100 ABG DELIVERY (test code=JODI) [employer] ABG TEMPERATURE (test code=TEMPA) 98.9 F ABG SITE (test code=SITEA) Art line TCO2 ARTERIAL (test code=TCO2A) 29 COAGULATION TIME [id number] 10:56:00* Test Item Value Reference Range Comments COAGULATION TIME ACTIVATED (test code=ACT) 147 SECONDS 105-167 COAGULATION TIME [id number] 10:56:00* Test Item Value Reference Range Comments COAGULATION TIME ACTIVATED (test code=ACT) 480 SECONDS 105-167 COAGULATION TIME [id number] 10:55:00* Test Item Value Reference Range Comments COAGULATION TIME ACTIVATED (test code=ACT) 521 SECONDS 105-167 COAGULATION TIME [id number] 10:55:00* Test Item Value Reference Range Comments COAGULATION TIME ACTIVATED (test code=ACT) 546 SECONDS 105-167 COAGULATION TIME [id number] 10:55:00* Test Item Value Reference Range Comments COAGULATION TIME ACTIVATED (test code=ACT) 123 SECONDS 105-167 [id number] 09:49:00* Test Item Value Reference Range Comments GLUBED (test code=GLUBED) 145 MG/DL 70-110 Performed by certified airline radio operator at [facility] B-TYPE NATRIURETIC [id number] 09:43:00* Test Item Value Reference Range Comments B-TYPE NATRIURETIC PEPTIDE (test code=BNP) 307.0 PG/ML 0-100 - XR CHEST 1 [id number] 07:01:00 FAX: Payal Hudson [phone] [place]: St: ADM FAX: Jaren Flores MD [phone] FAX: Toni Vernon I [phone] FAX: Britany Benavides [phone] Name: QUINTIN KOWALSKI [facility] : 1955 Age/S: 63/M [address] [place] [address] Unit #: [id number] Loc: G.[address] [place] [address] Phys: Dorie Benavides DIAL PAINTER Acct: [id number] Dis Date: Status: ADM IN PHONE #: [phone] Exam D ate: 08/01/2018 0537 FAX #: [phone] Reason: C ardiac Surgery Post Op EXAMS: CPT CODE: [id number] XR CHEST 1 V 27405 PROCEDURE: CHEST SINGLE VIEW I NDICATION: Cardiac Surgery Post Op COMPARISON: Multiple priors, most recent 07/31/2018 FINDINGS: TUBES AND LINES: The endotr acheal tube and gastric tube have been removed. Right IJ sheath in place. Mediastinal and left thoracostomy drains in place. EKG leads overlie the chest. Sternotomy wires are intact. CHEST: Ill-defined pe rihilar opacities bilateral. Opacification left base with obscuration of the hemidiaphragm and costophrenic angle. No pneumothorax. Blunting righ t costophrenic angle. The postoperative cardiomediastinal silhouette is s table. IMPRESSION: Postextubation chest with essentially stabl e perihilar opacities, left basilar pleural-parenchymal disease and smal l right pleural effusion. SL: [id number] at 0701 Reporte d and signed by: Fredy Moss M.D. CC: Payal Cowart M.D.; Lucia Miranda MD; Toni Foster MD; Dorie Benavides NP Technologist: Riley Ureña, RT(R); Alondra Ellison, RT(R) Trnscrd Date/Time/By: 08/01/2018 (700) : By: Otoniel Orig Print D/T: S: 08/01/2018 (04) PAGE 1 Signed Report [id number] 06:39:00* Test Item Value Reference Range Comments GLUBED (test code=GLUBED) 183 MG/DL 70-110 Performed by certified airline radio operator at [facility] BASIC METABOLIC [id number] 04:51:00* Test Item Value Reference Range Comments SODIUM (test code=NA) 141 mEq/L 134-147 POTASSIUM (test code=K) 5.0 mEq/L 3.4-5.0 CHLORIDE (test code=CL) 110 mEq/L 100-108 CARBON DIOXIDE (test code=CO2) 27 mEq/L 21-33 ANION GAP (test code=GAP) 9 0-20 GLUCOSE (test code=GLU) 197 mg/dL 70-110 BLOOD UREA NITROGEN (test code=BUN) 11 mg/dL 7-18 GLOMERULAR FILTRATION RATE (test code=GFR) 67.6 80-90 Units of measure=ml/min/1.73 m2 CREATININE (test code=CREAT) 1.1 mg/dL 0.6-1.3 CALCIUM (test code=CA) 8.5 mg/dL 8.0-10.5 HEPATIC FUNCTION [id number] 04:51:00* Test Item Value Reference Range Comments TOTAL PROTEIN (test code=PROT) 6.1 g/dL 6.4-8.2 ALBUMIN (test code=ALB) 3.40 g/dL 3.4-5.0 BILIRUBIN TOTAL (test code=BILT) 1.10 mg/dL 0.0-1.0 BILIRUBIN DIRECT (test code=BILD) 0.40 MG/DL 0.0-0.30 BILIRUBIN INDIRECT (test code=BILIND) 0.70 MG/DL SGOT/AST (test code=AST) 48 IUnit/L 15-37 SGPT/ALT (test code=ALT) 27 IUnit/L 15-65 ALKALINE PHOSPHATASE TOTAL (test code=ALKP) 57 IUnit/L 20-125 [id number] 04:51:00* Test Item Value Reference Range Comments MAGNESIUM (test code=MAG) 3.20 mg/dL 1.8-2.4 CBC W/AUTO [id number] 04:44:00* Test Item Value Reference Range Comments WHITE BLOOD CELL (test code=WBC) 15.95 x10 3/uL 4.5-11.0 RED BLOOD CELL (test code=RBC) 4.44 x10 6/uL 4.00-5.60 HEMOGLOBIN (test code=HGB) 13.4 g/dL 12.5-16.9 HEMATOCRIT (test code=HCT) 41.5 % 37.5-50.7 MEAN CELL VOLUME (test code=MCV) 93.5 fL 81.0-99.0 MEAN CELL HGB (test code=MCH) 30.2 pg 27.0-33.0 MEAN CELL HGB CONCETRATION (test code=MCHC) 32.3 g/dL 33.0-37.0 RED CELL DISTRIBUTION WIDTH CV (test code=RDW) 12.9 % 11.5-14.5 RED CELL DISTRIBUTION WIDTH SD (test code=RDW-SD) 43.9 fL 37.0-54.0 PLATELET COUNT (test code=PLT) 201 x10 3/uL 150-400 MEAN PLATELET VOLUME (test code=MPV) 10.6 fL 7.0-9.0 NEUTROPHIL % (test code=NT%) 86.4 % 56.0-77.0 IMMATURE GRANULOCYTE % (test code=IG%) 0.4 % 0.0-2.0 LYMPHOCYTE % (test code=LY%) 5.1 % 14.0-32.0 MONOCYTE % (test code=MO%) 8.0 % 4.8-9.0 EOSINOPHIL % (test code=EO%) 0.0 % 0.3-3.7 BASOPHIL % (test code=BA%) 0.1 % 0.0-2.0 NUCLEATED RBC % (test code=NRBC%) 0.0 % 0-0 NEUTROPHIL # (test code=NT#) 13.78 x10 3/uL 2.0-7.6 IMMATURE GRANULOCYTE # (test code=IG#) 0.06 x10 3/uL 0.00-0.03 LYMPHOCYTE # (test code=LY#) 0.82 x10 3/uL 1.0-3.8 MONOCYTE # (test code=MO#) 1.27 x10 3/uL 0.1-0.8 EOSINOPHIL # (test code=EO#) 0.00 x10 3/uL 0.0-0.2 BASOPHIL # (test code=BA#) 0.02 x10 3/uL 0.0-0.2 NUCLEATED RBC # (test code=NRBC#) 0.00 x10 3/uL 0.0-0.1 MANUAL DIFF REQUIRED (test code=MDIFF) NO [id number] 04:29:00* Test Item Value Reference Range Comments GLUBED (test code=GLUBED) 161 MG/DL 70-110 Performed by certified airline radio operator at [facility] ARTERIAL BLOOD [id number] 04:21:00* Test Item Value Reference Range Comments ARTERIAL BLOOD GAS PH (test code=PHA) 7.348 7.35-7.45 ARTERIAL BLOOD GAS PCO2 (test code=PCO2A) 45.2 mmHg 35-45 ARTERIAL BLOOD GAS PO2 (test code=PO2A) 75 mmHg 80-100 BICARBONATE TOTAL HCO3 (test code=HCO3) 24.9 mmol/L 22.0-26.0 BASE EXCESS (test code=RENE) -1.0 mmol/L -4-4 ABG O2 SATURATION (test code=SATA) 94 % 90-100 ABG DELIVERY (test code=JODI) Hi-jet Can ABG TEMPERATURE (test code=TEMPA) 98.0 F ABG SITE (test code=SITEA) Art line TCO2 ARTERIAL (test code=TCO2A) 26 LACTIC ACID 2ND [id number] 00:40:00* Test Item Value Reference Range Comments LACTIC ACID 2ND REPEAT (test code=LACT2) 1.6 mmol/L 0.4-1.9 [id number] 00:29:00* Test Item Value Reference Range Comments GLUBED (test code=GLUBED) 109 MG/DL 70-110 Performed by certified airline radio operator at [facility] BASIC METABOLIC [id number] 22:11:00* Test Item Value Reference Range Comments SODIUM (test code=NA) 142 mEq/L 134-147 POTASSIUM (test code=K) 4.1 mEq/L 3.4-5.0 CHLORIDE (test code=CL) 112 mEq/L 100-108 CARBON DIOXIDE (test code=CO2) 25 mEq/L 21-33 ANION GAP (test code=GAP) 9 0-20 GLUCOSE (test code=GLU) 165 mg/dL 70-110 BLOOD UREA NITROGEN (test code=BUN) 8 mg/dL 7-18 GLOMERULAR FILTRATION RATE (test code=GFR) 85.2 80-90 Units of measure=ml/min/1.73 m2 CREATININE (test code=CREAT) 0.9 mg/dL 0.6-1.3 CALCIUM (test code=CA) 8.1 mg/dL 8.0-10.5 LACTIC ACID [id number] 22:04:00* Test Item Value Reference Range Comments LACTIC ACID REPEAT (test code=LACTR) 2.1 mmol/l 0.4-1.9 HGB [id number] 21:51:00* Test Item Value Reference Range Comments HEMOGLOBIN (test code=HGB) 13.7 g/dL 12.5-16.9 HEMATOCRIT (test code=HCT) 41.8 % 37.5-50.7 ISTAT BLOOD [id number] 19:35:00* Test Item Value Reference Range Comments ARTERIAL BLOOD GAS PH (test code=PHA) 7.434 7.35-7.45 ARTERIAL BLOOD GAS PCO2 (test code=PCO2A) 44.5 mmHg 35-45 ARTERIAL BLOOD GAS PO2 (test code=PO2A) 85 mmHg 80-100 BICARBONATE TOTAL HCO3 (test code=HCO3) 29.9 mmol/L 22.0-26.0 BASE EXCESS (test code=RENE) 6.0 mmol/L -4-4 ABG O2 SATURATION (test code=SATA) 97 % 90-100 ABG DELIVERY (test code=JODI) Vent Performed by certified airline radio operator at [facility] ABG TEMPERATURE (test code=TEMPA) 98.0 F ABG SITE (test code=SITEA) Art line POC LACTIC ACID (test code=POCLAC) 2.2 mmol/L 0.9-1.7 [id number] 18:43:00* Test Item Value Reference Range Comments GLUBED (test code=GLUBED) 129 MG/DL 70-110 Performed by certified airline radio operator at [facility] ARTERIAL BLOOD [id number] 18:09:00* Test Item Value Reference Range Comments ARTERIAL BLOOD GAS PH (test code=PHA) 7.381 7.35-7.45 ARTERIAL BLOOD GAS PCO2 (test code=PCO2A) 44.5 mmHg 35-45 ARTERIAL BLOOD GAS PO2 (test code=PO2A) 91 mmHg 80-100 BICARBONATE TOTAL HCO3 (test code=HCO3) 26.4 mmol/L 22.0-26.0 BASE EXCESS (test code=RENE) 1.0 mmol/L -4-4 ABG O2 SATURATION (test code=SATA) 97 % 90-100 FIO2 (test code=FIO2A) 100 % ABG DELIVERY (test code=JODI) Vent ABG VENT MODE (test code=MODEA) AC v con ABG VENT RESP RATE (test code=RRA) 16 /MIN ABG TIDAL VOLUME (test code=TVA) 500 ml ABG PEEP (test code=PEEPA) 5 cmH2O Performed by certified airline radio operator at [facility] ABG TEMPERATURE (test code=TEMPA) 98.6 F ABG SITE (test code=SITEA) Art line PREDICTED AA GRADIENT (test code=AP) 171 PREDICTED PO2 (test code=OP) 488 a/A RATIO (test code=RATIO) 0.14 TCO2 ARTERIAL (test code=TCO2A) 28 A-A GRADIENT (test code=AAGRADE) 569 - XR CHEST 1 [id number] 17:51:00 FAX: Payal Hudson [phone] [place]: St: ADM FAX: Jaren Flores MD [phone] FAX: Toni Vernon I [phone] FAX: Britany Benavides [phone] Name: QUINTIN KOWALSKI [facility] : 1955 Age/S: 63/M [address] [place] [address] Unit #: [id number] Loc: G.2 [address] [place] [address] Phys: Dorie Benavides DIAL PAINTER Acct: [id number] Dis Date: Status: ADM IN PHONE #: [phone] Exam D ate: 07/31/2018 1743 FAX #: [phone] Reason: C ardiac Surgery Post Op EXAMS: CPT CODE: [id number] XR CHEST 1 V 26332 PROCEDURE: CHEST ONE VIEW DEBBIE CATION: Postoperative evaluation. COMPARISON: Chest 2 views 07/22/19 FINDINGS: Endotracheal catheter is present with the tip projecting over the expected region of the trachea, positioned 4.6 cm from the lovely. Enteric feeding catheter with the tip extendi ng below the inferior margin of the examination, likely within the gastric body. Right internal jugular temporary central venous catheter wi th tip projecting over the expected region of the superior vena cava. Cardiovascular: Normal cardiac silhouette. Normal thoracic aorta. Mediastinum: No mediastinal or hilar lymphadenopathy. L ungs: No focal consolidation. No parenchymal mass. Bibasilar atelectasis . Pleura: Small bilateral pleural effusions. No pneumothorax. Bones: No acute osseous abnormality. Median sternotomy wires. IMPRESSION: No acute radiographic abnormality. Lines and support catheters as above. [id number] 1 881 Reported and signed by: Casimiro Villegas M.D. PAG E 1 Signed Report (CONTINUED) FAX: Payal Hudson [phone] [place]: St: ADM FAX: Jaren Flores MD [phone] FAX: Toni Vernon I [phone] FAX: Britany Benavides [phone] Name: MERCEDEZ KOWALSKI [facility] [place] : 1955 Age/S: 63/M [address] [place] [address] Blvd Unit #: [id number] Loc: G.[address] [place] [address] Phys: Dorie Benavides DIAL PAINTER Acct: [id number] Dis Date: Status: ADM IN PHONE #: [phone] Exam Date: 07/31/2018 1743 FAX #: [phone] Reason: Cardiac S urgery Post Op EXAMS: CPT CODE: [id number] XR CHEST 1 V 08588 <Continued> CC: Payal Cowart M.D.; Jaren Miranda MD; Toni Foster MD; Dorie Tabares NP Technologist: RT Narinder(Dami)(M) Trnscrd Date/Time/By: 07/31/2018 (8927) : By: [email or web address] Orig Print D/T: S: 07/31/2018 (8379) PAGE 2 Signed Report BASIC METABOLIC [id number] 17:39:00* Test Item Value Reference Range Comments SODIUM (test code=NA) 142 mEq/L 134-147 POTASSIUM (test code=K) 3.7 mEq/L 3.4-5.0 CHLORIDE (test code=CL) 110 mEq/L 100-108 CARBON DIOXIDE (test code=CO2) 26 mEq/L 21-33 ANION GAP (test code=GAP) 10 0-20 GLUCOSE (test code=GLU) 142 mg/dL 70-110 BLOOD UREA NITROGEN (test code=BUN) 8 mg/dL 7-18 GLOMERULAR FILTRATION RATE (test code=GFR) 75.5 80-90 Units of measure=ml/min/1.73 m2 CREATININE (test code=CREAT) 1.0 mg/dL 0.6-1.3 CALCIUM (test code=CA) 8.1 mg/dL 8.0-10.5 COMMENTS: On [id number] 17:39:00* Test Item Value Reference Range Comments MAGNESIUM (test code=MAG) 4.50 mg/dL 1.8-2.4 COMMENTS: On arrivalPROTHROMBIN [id number] 17:29:00* Test Item Value Reference Range Comments PROTHROMBIN TIME PATIENT (test code=PTP) 17.0 SECONDS 9.3-12.9 INTERNATIONAL NORMAL RATIO (test code=INR) 1.5 0.8-1.2 TARGET INR BY INDICATION Indication INR1. Prophylaxis of venous thrombosis 2.0 - 3.0 (orthopedic surgery), Prophylaxis of venous thrombosis (other than high-risk surgery), Treatment of Deep Vein Thrombosis/Pulmonary Embolism, Prevention of systemic embolism - Tissue heart valves, Acute Myocardial Infarction (to prevent systemic embolism), Valvular heart disease, Atrial Fibrillation, Bileaflet mechanical valve in aortic position.2. Mechanical prosthetic valves (high risk), 2.5 - 3.5 Presence of Lupus Anticoagulant or Antiphospholipid Antibodies, Prevention of systemic embolism - Acute Myocardial Infarction (to prevent recurrent infarct). COMMENTS: On arrivalTHROMBOPLASTIN TIME [id number] 17:29:00* Test Item Value Reference Range Comments THROMBOPLASTIN TIME PARTIAL (test code=PTT) 28.3 Seconds 25.0-39.5 Therapeutic Range: 61.8-83.8 Sec Effective 06/13/2013 COMMENTS: On arrivalCBC W/AUTO [id number] 17:17:00* Test Item Value Reference Range Comments WHITE BLOOD CELL (test code=WBC) 23.89 x10 3/uL 4.5-11.0 RED BLOOD CELL (test code=RBC) 4.41 x10 6/uL 4.00-5.60 HEMOGLOBIN (test code=HGB) 13.3 g/dL 12.5-16.9 HEMATOCRIT (test code=HCT) 41.4 % 37.5-50.7 MEAN CELL VOLUME (test code=MCV) 93.9 fL 81.0-99.0 MEAN CELL HGB (test code=MCH) 30.2 pg 27.0-33.0 MEAN CELL HGB CONCETRATION (test code=MCHC) 32.1 g/dL 33.0-37.0 RED CELL DISTRIBUTION WIDTH CV (test code=RDW) 12.6 % 11.5-14.5 RED CELL DISTRIBUTION WIDTH SD (test code=RDW-SD) 43.6 fL 37.0-54.0 PLATELET COUNT (test code=PLT) 196 x10 3/uL 150-400 MEAN PLATELET VOLUME (test code=MPV) 10.4 fL 7.0-9.0 NEUTROPHIL % (test code=NT%) 78.0 % 56.0-77.0 IMMATURE GRANULOCYTE % (test code=IG%) 1.0 % 0.0-2.0 LYMPHOCYTE % (test code=LY%) 13.8 % 14.0-32.0 MONOCYTE % (test code=MO%) 5.9 % 4.8-9.0 EOSINOPHIL % (test code=EO%) 1.0 % 0.3-3.7 BASOPHIL % (test code=BA%) 0.3 % 0.0-2.0 NUCLEATED RBC % (test code=NRBC%) 0.0 % 0-0 NEUTROPHIL # (test code=NT#) 18.65 x10 3/uL 2.0-7.6 IMMATURE GRANULOCYTE # (test code=IG#) 0.23 x10 3/uL 0.00-0.03 LYMPHOCYTE # (test code=LY#) 3.29 x10 3/uL 1.0-3.8 MONOCYTE # (test code=MO#) 1.42 x10 3/uL 0.1-0.8 EOSINOPHIL # (test code=EO#) 0.23 x10 3/uL 0.0-0.2 BASOPHIL # (test code=BA#) 0.07 x10 3/uL 0.0-0.2 NUCLEATED RBC # (test code=NRBC#) 0.00 x10 3/uL 0.0-0.1 MANUAL DIFF REQUIRED (test code=MDIFF) NO COMMENTS: On [id number] 17:09:00* Test Item Value Reference Range Comments GLUBED (test code=GLUBED) 124 MG/DL 70-110 Performed by certified airline radio operator at [facility] BLOOD [id number] 17:05:00* Test Item Value Reference Range Comments ARTERIAL BLOOD GAS PH (test code=PHA) 7.331 7.35-7.45 ARTERIAL BLOOD GAS PCO2 (test code=PCO2A) 45.8 mmHg 35-45 ARTERIAL BLOOD GAS PO2 (test code=PO2A) 68 mmHg 80-100 BICARBONATE TOTAL HCO3 (test code=HCO3) 24.2 mmol/L 22.0-26.0 BASE EXCESS (test code=RENE) -2.0 mmol/L -4-4 ABG O2 SATURATION (test code=SATA) 92 % 90-100 FIO2 (test code=FIO2A) 60 % ABG DELIVERY (test code=JODI) Vent ABG VENT MODE (test code=MODEA) AC v con ABG VENT RESP RATE (test code=RRA) 16 /MIN ABG TIDAL VOLUME (test code=TVA) 500 ml ABG PEEP (test code=PEEPA) 5 cmH2O Performed by certified airline radio operator at [facility] ABG TEMPERATURE (test code=TEMPA) 98.6 F ABG SITE (test code=SITEA) Art line PREDICTED AA GRADIENT (test code=AP) 96 PREDICTED PO2 (test code=OP) 276 a/A RATIO (test code=RATIO) 0.18 POC LACTIC ACID (test code=POCLAC) 2.8 mmol/L 0.9-1.7 A-A GRADIENT (test code=AAGRADE) 305 BLOOD GAS W/[id number] 17:05:00* Test Item Value Reference Range Comments ARTERIAL BLOOD GAS PH (test code=PHA) 7.340 7.35-7.45 ARTERIAL BLOOD GAS PCO2 (test code=PCO2A) 44.6 mmHg 35-45 ARTERIAL BLOOD GAS PO2 (test code=PO2A) 70 mmHg 80-100 BICARBONATE TOTAL HCO3 (test code=HCO3) 24.1 mmol/L 22.0-26.0 BASE EXCESS (test code=RENE) -2.0 mmol/L -4-4 ABG O2 SATURATION (test code=SATA) 92 % 90-100 FIO2 (test code=FIO2A) 60 % ABG DELIVERY (test code=JODI) Vent ABG VENT MODE (test code=MODEA) AC v con ABG VENT RESP RATE (test code=RRA) 16 /MIN ABG TIDAL VOLUME (test code=TVA) 500 ml ABG PEEP (test code=PEEPA) 5 cmH2O Performed by certified airline radio operator at [facility] ABG TEMPERATURE (test code=TEMPA) 98.6 F ABG SITE (test code=SITEA) Art line PREDICTED AA GRADIENT (test code=AP) 97 PREDICTED PO2 (test code=OP) 277 a/A RATIO (test code=RATIO) 0.19 IONIZED CALCIUM (test code=CAIABG) 1.19 mmoL/L 1.15-1.35 A-A GRADIENT (test code=AAGRADE) 304 SODIUM BEDSIDE (test code=NAB) 143 MEQ/L 134-147 POTASSIUM BEDSIDE (test code=KBD) 3.5 MEQ/L 4.5-7.0 POC ARTERIAL BLOOD [id number] 16:28:00* Test Item Value Reference Range Comments POC ARTERIAL BLOOD GAS PH (test code=POCPHA) 7.391 7.35-7.45 POC ARTERIAL BLOOD GAS PCO2 (test code=ZSSOZJ1A) 39.9 mmHg 35.0-45 POC TCO2 ARTERIAL (test code=POCTCO2) 25.5 POC ARTERIAL BLOOD GAS PO2 (test code=VHEUG8Y) 79.5 mmHg 80-100.0 POC HCO3 ARTERIAL (test code=OMODLF2X) 24.2 MMOL/L 22.0-26.0 POC BASE EXCESS (test code=POCBEA) -0.7 MMOL/L -4.0-4.0 POC O2 SATURATION (test code=POCO2S) 95.5 % 90-100 [id number] 16:28:00* Test Item Value Reference Range Comments SODIUM (test code=NA/ABG) MEQ/L 134-147 [id number] 16:28:00* Test Item Value Reference Range Comments POTASSIUM (test code=K/ABG) MEQ/L 3.4-5.0 [id number] 16:28:00* Test Item Value Reference Range Comments CHLORIDE (test code=CL/ABG) MEQ/L 100-108 CREATININE [id number] 16:28:00* Test Item Value Reference Range Comments CREATININE ABG (test code=CREAABG) mg/dL 0.8-1.3 [id number] 16:28:00* Test Item Value Reference Range Comments HEMOGLOBIN (test code=HGB/ABG) G/DL 12.5-16.9 [id number] 16:28:00* Test Item Value Reference Range Comments HEMATOCRIT (test code=HCT/ABG) % 37.5-50.7 POC IONIZED [id number] 16:28:00* Test Item Value Reference Range Comments POC IONIZED CALCIUM (test code=POCCA) MMOL/L 1.12-1.32 POC [id number] 16:28:00* Test Item Value Reference Range Comments POC GLUCOSE (test code=POCGLU) MG/DL 70-110 POC ARTERIAL BLOOD [id number] 16:28:00* Test Item Value Reference Range Comments POC ARTERIAL BLOOD GAS PH (test code=POCPHA) 7.391 7.35-7.45 POC ARTERIAL BLOOD GAS PCO2 (test code=RCWWJJ1C) 39.9 mmHg 35.0-45 POC TCO2 ARTERIAL (test code=POCTCO2) 25.5 POC ARTERIAL BLOOD GAS PO2 (test code=GXGLZ7Y) 79.5 mmHg 80-100.0 POC HCO3 ARTERIAL (test code=XXVKGH9B) 24.2 MMOL/L 22.0-26.0 POC BASE EXCESS (test code=POCBEA) -0.7 MMOL/L -4.0-4.0 POC O2 SATURATION (test code=POCO2S) 95.5 % 90-100 [id number] 16:28:00* Test Item Value Reference Range Comments SODIUM (test code=NA/ABG) 143 MEQ/L 134-147 [id number] 16:28:00* Test Item Value Reference Range Comments POTASSIUM (test code=K/ABG) MEQ/L 3.4-5.0 [id number] 16:28:00* Test Item Value Reference Range Comments CHLORIDE (test code=CL/ABG) MEQ/L 100-108 CREATININE [id number] 16:28:00* Test Item Value Reference Range Comments CREATININE ABG (test code=CREAABG) mg/dL 0.8-1.3 [id number] 16:28:00* Test Item Value Reference Range Comments HEMOGLOBIN (test code=HGB/ABG) G/DL 12.5-16.9 [id number] 16:28:00* Test Item Value Reference Range Comments HEMATOCRIT (test code=HCT/ABG) % 37.5-50.7 POC IONIZED [id number] 16:28:00* Test Item Value Reference Range Comments POC IONIZED CALCIUM (test code=POCCA) MMOL/L 1.12-1.32 POC [id number] 16:28:00* Test Item Value Reference Range Comments POC GLUCOSE (test code=POCGLU) MG/DL 70-110 POC ARTERIAL BLOOD [id number] 16:28:00* Test Item Value Reference Range Comments POC ARTERIAL BLOOD GAS PH (test code=POCPHA) 7.391 7.35-7.45 POC ARTERIAL BLOOD GAS PCO2 (test code=LUHHIP3S) 39.9 mmHg 35.0-45 POC TCO2 ARTERIAL (test code=POCTCO2) 25.5 POC ARTERIAL BLOOD GAS PO2 (test code=ZKSFE2Y) 79.5 mmHg 80-100.0 POC HCO3 ARTERIAL (test code=NNUHLB2N) 24.2 MMOL/L 22.0-26.0 POC BASE EXCESS (test code=POCBEA) -0.7 MMOL/L -4.0-4.0 POC O2 SATURATION (test code=POCO2S) 95.5 % 90-100 [id number] 16:28:00* Test Item Value Reference Range Comments SODIUM (test code=NA/ABG) 143 MEQ/L 134-147 [id number] 16:28:00* Test Item Value Reference Range Comments POTASSIUM (test code=K/ABG) 3.9 MEQ/L 3.4-5.0 [id number] 16:28:00* Test Item Value Reference Range Comments CHLORIDE (test code=CL/ABG) MEQ/L 100-108 CREATININE [id number] 16:28:00* Test Item Value Reference Range Comments CREATININE ABG (test code=CREAABG) mg/dL 0.8-1.3 [id number] 16:28:00* Test Item Value Reference Range Comments HEMOGLOBIN (test code=HGB/ABG) G/DL 12.5-16.9 [id number] 16:28:00* Test Item Value Reference Range Comments HEMATOCRIT (test code=HCT/ABG) % 37.5-50.7 POC IONIZED [id number] 16:28:00* Test Item Value Reference Range Comments POC IONIZED CALCIUM (test code=POCCA) MMOL/L 1.12-1.32 POC [id number] 16:28:00* Test Item Value Reference Range Comments POC GLUCOSE (test code=POCGLU) MG/DL 70-110 POC ARTERIAL BLOOD [id number] 16:28:00* Test Item Value Reference Range Comments POC ARTERIAL BLOOD GAS PH (test code=POCPHA) 7.391 7.35-7.45 POC ARTERIAL BLOOD GAS PCO2 (test code=TSKWBM4F) 39.9 mmHg 35.0-45 POC TCO2 ARTERIAL (test code=POCTCO2) 25.5 POC ARTERIAL BLOOD GAS PO2 (test code=XONHI2L) 79.5 mmHg 80-100.0 POC HCO3 ARTERIAL (test code=JCXANG8L) 24.2 MMOL/L 22.0-26.0 POC BASE EXCESS (test code=POCBEA) -0.7 MMOL/L -4.0-4.0 POC O2 SATURATION (test code=POCO2S) 95.5 % 90-100 [id number] 16:28:00* Test Item Value Reference Range Comments SODIUM (test code=NA/ABG) 143 MEQ/L 134-147 [id number] 16:28:00* Test Item Value Reference Range Comments POTASSIUM (test code=K/ABG) 3.9 MEQ/L 3.4-5.0 [id number] 16:28:00* Test Item Value Reference Range Comments CHLORIDE (test code=CL/ABG) MEQ/L 100-108 CREATININE [id number] 16:28:00* Test Item Value Reference Range Comments CREATININE ABG (test code=CREAABG) mg/dL 0.8-1.3 [id number] 16:28:00* Test Item Value Reference Range Comments HEMOGLOBIN (test code=HGB/ABG) G/DL 12.5-16.9 [id number] 16:28:00* Test Item Value Reference Range Comments HEMATOCRIT (test code=HCT/ABG) % 37.5-50.7 POC IONIZED [id number] 16:28:00* Test Item Value Reference Range Comments POC IONIZED CALCIUM (test code=POCCA) 1.20 MMOL/L 1.12-1.32 POC [id number] 16:28:00* Test Item Value Reference Range Comments POC GLUCOSE (test code=POCGLU) MG/DL 70-110 POC ARTERIAL BLOOD [id number] 16:28:00* Test Item Value Reference Range Comments POC ARTERIAL BLOOD GAS PH (test code=POCPHA) 7.391 7.35-7.45 POC ARTERIAL BLOOD GAS PCO2 (test code=MOSGRI8U) 39.9 mmHg 35.0-45 POC TCO2 ARTERIAL (test code=POCTCO2) 25.5 POC ARTERIAL BLOOD GAS PO2 (test code=DLJYM3F) 79.5 mmHg 80-100.0 POC HCO3 ARTERIAL (test code=OCLYUB6Q) 24.2 MMOL/L 22.0-26.0 POC BASE EXCESS (test code=POCBEA) -0.7 MMOL/L -4.0-4.0 POC O2 SATURATION (test code=POCO2S) 95.5 % 90-100 [id number] 16:28:00* Test Item Value Reference Range Comments SODIUM (test code=NA/ABG) 143 MEQ/L 134-147 [id number] 16:28:00* Test Item Value Reference Range Comments POTASSIUM (test code=K/ABG) 3.9 MEQ/L 3.4-5.0 [id number] 16:28:00* Test Item Value Reference Range Comments CHLORIDE (test code=CL/ABG) MEQ/L 100-108 CREATININE [id number] 16:28:00* Test Item Value Reference Range Comments CREATININE ABG (test code=CREAABG) mg/dL 0.8-1.3 [id number] 16:28:00* Test Item Value Reference Range Comments HEMOGLOBIN (test code=HGB/ABG) G/DL 12.5-16.9 [id number] 16:28:00* Test Item Value Reference Range Comments HEMATOCRIT (test code=HCT/ABG) % 37.5-50.7 POC IONIZED [id number] 16:28:00* Test Item Value Reference Range Comments POC IONIZED CALCIUM (test code=POCCA) 1.20 MMOL/L 1.12-1.32 POC [id number] 16:28:00* Test Item Value Reference Range Comments POC GLUCOSE (test code=POCGLU) 167 MG/DL 70-110 POC ARTERIAL BLOOD [id number] 16:28:00* Test Item Value Reference Range Comments POC ARTERIAL BLOOD GAS PH (test code=POCPHA) 7.391 7.35-7.45 POC ARTERIAL BLOOD GAS PCO2 (test code=MXXNED8K) 39.9 mmHg 35.0-45 POC TCO2 ARTERIAL (test code=POCTCO2) 25.5 POC ARTERIAL BLOOD GAS PO2 (test code=YBPBW3M) 79.5 mmHg 80-100.0 POC HCO3 ARTERIAL (test code=NKQXLL0K) 24.2 MMOL/L 22.0-26.0 POC BASE EXCESS (test code=POCBEA) -0.7 MMOL/L -4.0-4.0 POC O2 SATURATION (test code=POCO2S) 95.5 % 90-100 [id number] 16:28:00* Test Item Value Reference Range Comments SODIUM (test code=NA/ABG) 143 MEQ/L 134-147 [id number] 16:28:00* Test Item Value Reference Range Comments POTASSIUM (test code=K/ABG) 3.9 MEQ/L 3.4-5.0 [id number] 16:28:00* Test Item Value Reference Range Comments CHLORIDE (test code=CL/ABG) MEQ/L 100-108 CREATININE [id number] 16:28:00* Test Item Value Reference Range Comments CREATININE ABG (test code=CREAABG) mg/dL 0.8-1.3 [id number] 16:28:00* Test Item Value Reference Range Comments HEMOGLOBIN (test code=HGB/ABG) G/DL 12.5-16.9 [id number] 16:28:00* Test Item Value Reference Range Comments HEMATOCRIT (test code=HCT/ABG) 36 % 37.5-50.7 POC IONIZED [id number] 16:28:00* Test Item Value Reference Range Comments POC IONIZED CALCIUM (test code=POCCA) 1.20 MMOL/L 1.12-1.32 POC [id number] 16:28:00* Test Item Value Reference Range Comments POC GLUCOSE (test code=POCGLU) 167 MG/DL 70-110 POC ARTERIAL BLOOD [id number] 16:28:00* Test Item Value Reference Range Comments POC ARTERIAL BLOOD GAS PH (test code=POCPHA) 7.391 7.35-7.45 POC ARTERIAL BLOOD GAS PCO2 (test code=RIJQJY5B) 39.9 mmHg 35.0-45 POC TCO2 ARTERIAL (test code=POCTCO2) 25.5 POC ARTERIAL BLOOD GAS PO2 (test code=SUAVC2V) 79.5 mmHg 80-100.0 POC HCO3 ARTERIAL (test code=AMTKZE5D) 24.2 MMOL/L 22.0-26.0 POC BASE EXCESS (test code=POCBEA) -0.7 MMOL/L -4.0-4.0 POC O2 SATURATION (test code=POCO2S) 95.5 % 90-100 [id number] 16:28:00* Test Item Value Reference Range Comments SODIUM (test code=NA/ABG) 143 MEQ/L 134-147 [id number] 16:28:00* Test Item Value Reference Range Comments POTASSIUM (test code=K/ABG) 3.9 MEQ/L 3.4-5.0 [id number] 16:28:00* Test Item Value Reference Range Comments CHLORIDE (test code=CL/ABG) MEQ/L 100-108 CREATININE [id number] 16:28:00* Test Item Value Reference Range Comments CREATININE ABG (test code=CREAABG) mg/dL 0.8-1.3 [id number] 16:28:00* Test Item Value Reference Range Comments HEMOGLOBIN (test code=HGB/ABG) 12.3 G/DL 12.5-16.9 [id number] 16:28:00* Test Item Value Reference Range Comments HEMATOCRIT (test code=HCT/ABG) 36 % 37.5-50.7 POC IONIZED [id number] 16:28:00* Test Item Value Reference Range Comments POC IONIZED CALCIUM (test code=POCCA) 1.20 MMOL/L 1.12-1.32 POC [id number] 16:28:00* Test Item Value Reference Range Comments POC GLUCOSE (test code=POCGLU) 167 MG/DL 70-110 POC ARTERIAL BLOOD [id number] 16:28:00* Test Item Value Reference Range Comments POC ARTERIAL BLOOD GAS PH (test code=POCPHA) 7.391 7.35-7.45 POC ARTERIAL BLOOD GAS PCO2 (test code=TFVQXA4Z) 39.9 mmHg 35.0-45 POC TCO2 ARTERIAL (test code=POCTCO2) 25.5 POC ARTERIAL BLOOD GAS PO2 (test code=EKTKB1C) 79.5 mmHg 80-100.0 POC HCO3 ARTERIAL (test code=FPUNII5G) 24.2 MMOL/L 22.0-26.0 POC BASE EXCESS (test code=POCBEA) -0.7 MMOL/L -4.0-4.0 POC O2 SATURATION (test code=POCO2S) 95.5 % 90-100 [id number] 16:28:00* Test Item Value Reference Range Comments SODIUM (test code=NA/ABG) 143 MEQ/L 134-147 [id number] 16:28:00* Test Item Value Reference Range Comments POTASSIUM (test code=K/ABG) 3.9 MEQ/L 3.4-5.0 [id number] 16:28:00* Test Item Value Reference Range Comments CHLORIDE (test code=CL/ABG) 106 MEQ/L 100-108 CREATININE [id number] 16:28:00* Test Item Value Reference Range Comments CREATININE ABG (test code=CREAABG) mg/dL 0.8-1.3 [id number] 16:28:00* Test Item Value Reference Range Comments HEMOGLOBIN (test code=HGB/ABG) 12.3 G/DL 12.5-16.9 [id number] 16:28:00* Test Item Value Reference Range Comments HEMATOCRIT (test code=HCT/ABG) 36 % 37.5-50.7 POC IONIZED [id number] 16:28:00* Test Item Value Reference Range Comments POC IONIZED CALCIUM (test code=POCCA) 1.20 MMOL/L 1.12-1.32 POC [id number] 16:28:00* Test Item Value Reference Range Comments POC GLUCOSE (test code=POCGLU) 167 MG/DL 70-110 POC ARTERIAL BLOOD [id number] 16:28:00* Test Item Value Reference Range Comments POC ARTERIAL BLOOD GAS PH (test code=POCPHA) 7.391 7.35-7.45 POC ARTERIAL BLOOD GAS PCO2 (test code=PRGQIR3G) 39.9 mmHg 35.0-45 POC TCO2 ARTERIAL (test code=POCTCO2) 25.5 POC ARTERIAL BLOOD GAS PO2 (test code=JRFUR0U) 79.5 mmHg 80-100.0 POC HCO3 ARTERIAL (test code=VMTHXF0A) 24.2 MMOL/L 22.0-26.0 POC BASE EXCESS (test code=POCBEA) -0.7 MMOL/L -4.0-4.0 POC O2 SATURATION (test code=POCO2S) 95.5 % 90-100 [id number] 16:28:00* Test Item Value Reference Range Comments SODIUM (test code=NA/ABG) 143 MEQ/L 134-147 [id number] 16:28:00* Test Item Value Reference Range Comments POTASSIUM (test code=K/ABG) 3.9 MEQ/L 3.4-5.0 [id number] 16:28:00* Test Item Value Reference Range Comments CHLORIDE (test code=CL/ABG) 106 MEQ/L 100-108 CREATININE [id number] 16:28:00* Test Item Value Reference Range Comments CREATININE ABG (test code=CREAABG) 1.0 mg/dL 0.8-1.3 [id number] 16:28:00* Test Item Value Reference Range Comments HEMOGLOBIN (test code=HGB/ABG) 12.3 G/DL 12.5-16.9 [id number] 16:28:00* Test Item Value Reference Range Comments HEMATOCRIT (test code=HCT/ABG) 36 % 37.5-50.7 POC IONIZED [id number] 16:28:00* Test Item Value Reference Range Comments POC IONIZED CALCIUM (test code=POCCA) 1.20 MMOL/L 1.12-1.32 POC [id number] 16:28:00* Test Item Value Reference Range Comments POC GLUCOSE (test code=POCGLU) 167 MG/DL 70-110 PROTHROMBIN [id number] 16:27:00* Test Item Value Reference Range Comments PROTHROMBIN TIME PATIENT (test code=PTP) 21.8 SECONDS 9.3-12.9 INTERNATIONAL NORMAL RATIO (test code=INR) 1.9 0.8-1.2 TARGET INR BY INDICATION Indication INR1. Prophylaxis of venous thrombosis 2.0 - 3.0 (orthopedic surgery), Prophylaxis of venous thrombosis (other than high-risk surgery), Treatment of Deep Vein Thrombosis/Pulmonary Embolism, Prevention of systemic embolism - Tissue heart valves, Acute Myocardial Infarction (to prevent systemic embolism), Valvular heart disease, Atrial Fibrillation, Bileaflet mechanical valve in aortic position.2. Mechanical prosthetic valves (high risk), 2.5 - 3.5 Presence of Lupus Anticoagulant or Antiphospholipid Antibodies, Prevention of systemic embolism - Acute Myocardial Infarction (to prevent recurrent infarct). THROMBOPLASTIN TIME [id number] 16:27:00* Test Item Value Reference Range Comments THROMBOPLASTIN TIME PARTIAL (test code=PTT) 39.2 Seconds 25.0-39.5 Therapeutic Range: 61.8-83.8 Sec Effective 06/13/2013 [id number] 16:26:00* Test Item Value Reference Range Comments GLUBED (test code=GLUBED) 172 MG/DL 70-110 Performed by certified airline radio operator at [facility] [id number] 16:26:00* Test Item Value Reference Range Comments GLUBED (test code=GLUBED) 126 MG/DL 70-110 Performed by certified airline radio operator at [facility] [id number] 16:26:00* Test Item Value Reference Range Comments GLUBED (test code=GLUBED) 101 MG/DL 70-110 Performed by certified airline radio operator at [facility] [id number] 16:26:00* Test Item Value Reference Range Comments GLUBED (test code=GLUBED) 145 MG/DL 70-110 Performed by certified airline radio operator at [facility] [id number] 16:26:00* Test Item Value Reference Range Comments GLUBED (test code=GLUBED) 129 MG/DL 70-110 Performed by certified airline radio operator at [facility] HGB [id number] 16:15:00* Test Item Value Reference Range Comments HEMOGLOBIN (test code=HGB) 12.0 g/dL 12.5-16.9 HEMATOCRIT (test code=HCT) 37.0 % 37.5-50.7 PLATELET [id number] 16:15:00* Test Item Value Reference Range Comments PLATELET COUNT (test code=PLT) 166 x10 3/uL 150-400 POC ARTERIAL BLOOD [id number] 15:59:00* Test Item Value Reference Range Comments POC ARTERIAL BLOOD GAS PH (test code=POCPHA) 7.395 7.35-7.45 POC ARTERIAL BLOOD GAS PCO2 (test code=RLRJTQ6R) 39.9 mmHg 35.0-45 POC TCO2 ARTERIAL (test code=POCTCO2) 25.7 POC ARTERIAL BLOOD GAS PO2 (test code=POFFB9Q) 75.7 mmHg 80-100.0 POC HCO3 ARTERIAL (test code=HMGOCL2N) 24.4 MMOL/L 22.0-26.0 POC BASE EXCESS (test code=POCBEA) -0.4 MMOL/L -4.0-4.0 POC O2 SATURATION (test code=POCO2S) 95.0 % 90-100 [id number] 15:59:00* Test Item Value Reference Range Comments SODIUM (test code=NA/ABG) MEQ/L 134-147 [id number] 15:59:00* Test Item Value Reference Range Comments POTASSIUM (test code=K/ABG) MEQ/L 3.4-5.0 [id number] 15:59:00* Test Item Value Reference Range Comments CHLORIDE (test code=CL/ABG) MEQ/L 100-108 CREATININE [id number] 15:59:00* Test Item Value Reference Range Comments CREATININE ABG (test code=CREAABG) mg/dL 0.8-1.3 [id number] 15:59:00* Test Item Value Reference Range Comments HEMOGLOBIN (test code=HGB/ABG) G/DL 12.5-16.9 [id number] 15:59:00* Test Item Value Reference Range Comments HEMATOCRIT (test code=HCT/ABG) % 37.5-50.7 POC IONIZED [id number] 15:59:00* Test Item Value Reference Range Comments POC IONIZED CALCIUM (test code=POCCA) MMOL/L 1.12-1.32 POC [id number] 15:59:00* Test Item Value Reference Range Comments POC GLUCOSE (test code=POCGLU) MG/DL 70-110 POC ARTERIAL BLOOD [id number] 15:59:00* Test Item Value Reference Range Comments POC ARTERIAL BLOOD GAS PH (test code=POCPHA) 7.395 7.35-7.45 POC ARTERIAL BLOOD GAS PCO2 (test code=EHLORN5P) 39.9 mmHg 35.0-45 POC TCO2 ARTERIAL (test code=POCTCO2) 25.7 POC ARTERIAL BLOOD GAS PO2 (test code=ARKPH3I) 75.7 mmHg 80-100.0 POC HCO3 ARTERIAL (test code=VMBZIR2J) 24.4 MMOL/L 22.0-26.0 POC BASE EXCESS (test code=POCBEA) -0.4 MMOL/L -4.0-4.0 POC O2 SATURATION (test code=POCO2S) 95.0 % 90-100 [id number] 15:59:00* Test Item Value Reference Range Comments SODIUM (test code=NA/ABG) 141 MEQ/L 134-147 [id number] 15:59:00* Test Item Value Reference Range Comments POTASSIUM (test code=K/ABG) MEQ/L 3.4-5.0 [id number] 15:59:00* Test Item Value Reference Range Comments CHLORIDE (test code=CL/ABG) MEQ/L 100-108 CREATININE [id number] 15:59:00* Test Item Value Reference Range Comments CREATININE ABG (test code=CREAABG) mg/dL 0.8-1.3 [id number] 15:59:00* Test Item Value Reference Range Comments HEMOGLOBIN (test code=HGB/ABG) G/DL 12.5-16.9 [id number] 15:59:00* Test Item Value Reference Range Comments HEMATOCRIT (test code=HCT/ABG) % 37.5-50.7 POC IONIZED [id number] 15:59:00* Test Item Value Reference Range Comments POC IONIZED CALCIUM (test code=POCCA) MMOL/L 1.12-1.32 POC [id number] 15:59:00* Test Item Value Reference Range Comments POC GLUCOSE (test code=POCGLU) MG/DL 70-110 POC ARTERIAL BLOOD [id number] 15:59:00* Test Item Value Reference Range Comments POC ARTERIAL BLOOD GAS PH (test code=POCPHA) 7.395 7.35-7.45 POC ARTERIAL BLOOD GAS PCO2 (test code=VVTROF5J) 39.9 mmHg 35.0-45 POC TCO2 ARTERIAL (test code=POCTCO2) 25.7 POC ARTERIAL BLOOD GAS PO2 (test code=XDEJJ4G) 75.7 mmHg 80-100.0 POC HCO3 ARTERIAL (test code=HBPRTN2F) 24.4 MMOL/L 22.0-26.0 POC BASE EXCESS (test code=POCBEA) -0.4 MMOL/L -4.0-4.0 POC O2 SATURATION (test code=POCO2S) 95.0 % 90-100 [id number] 15:59:00* Test Item Value Reference Range Comments SODIUM (test code=NA/ABG) 141 MEQ/L 134-147 [id number] 15:59:00* Test Item Value Reference Range Comments POTASSIUM (test code=K/ABG) 4.8 MEQ/L 3.4-5.0 [id number] 15:59:00* Test Item Value Reference Range Comments CHLORIDE (test code=CL/ABG) MEQ/L 100-108 CREATININE [id number] 15:59:00* Test Item Value Reference Range Comments CREATININE ABG (test code=CREAABG) mg/dL 0.8-1.3 [id number] 15:59:00* Test Item Value Reference Range Comments HEMOGLOBIN (test code=HGB/ABG) G/DL 12.5-16.9 [id number] 15:59:00* Test Item Value Reference Range Comments HEMATOCRIT (test code=HCT/ABG) % 37.5-50.7 POC IONIZED [id number] 15:59:00* Test Item Value Reference Range Comments POC IONIZED CALCIUM (test code=POCCA) MMOL/L 1.12-1.32 POC [id number] 15:59:00* Test Item Value Reference Range Comments POC GLUCOSE (test code=POCGLU) MG/DL 70-110 POC ARTERIAL BLOOD [id number] 15:59:00* Test Item Value Reference Range Comments POC ARTERIAL BLOOD GAS PH (test code=POCPHA) 7.395 7.35-7.45 POC ARTERIAL BLOOD GAS PCO2 (test code=ZUDYKK6C) 39.9 mmHg 35.0-45 POC TCO2 ARTERIAL (test code=POCTCO2) 25.7 POC ARTERIAL BLOOD GAS PO2 (test code=UOJZU2O) 75.7 mmHg 80-100.0 POC HCO3 ARTERIAL (test code=NEGCGF6O) 24.4 MMOL/L 22.0-26.0 POC BASE EXCESS (test code=POCBEA) -0.4 MMOL/L -4.0-4.0 POC O2 SATURATION (test code=POCO2S) 95.0 % 90-100 [id number] 15:59:00* Test Item Value Reference Range Comments SODIUM (test code=NA/ABG) 141 MEQ/L 134-147 [id number] 15:59:00* Test Item Value Reference Range Comments POTASSIUM (test code=K/ABG) 4.8 MEQ/L 3.4-5.0 [id number] 15:59:00* Test Item Value Reference Range Comments CHLORIDE (test code=CL/ABG) MEQ/L 100-108 CREATININE [id number] 15:59:00* Test Item Value Reference Range Comments CREATININE ABG (test code=CREAABG) mg/dL 0.8-1.3 [id number] 15:59:00* Test Item Value Reference Range Comments HEMOGLOBIN (test code=HGB/ABG) G/DL 12.5-16.9 [id number] 15:59:00* Test Item Value Reference Range Comments HEMATOCRIT (test code=HCT/ABG) % 37.5-50.7 POC IONIZED [id number] 15:59:00* Test Item Value Reference Range Comments POC IONIZED CALCIUM (test code=POCCA) 1.28 MMOL/L 1.12-1.32 POC [id number] 15:59:00* Test Item Value Reference Range Comments POC GLUCOSE (test code=POCGLU) MG/DL 70-110 POC ARTERIAL BLOOD [id number] 15:59:00* Test Item Value Reference Range Comments POC ARTERIAL BLOOD GAS PH (test code=POCPHA) 7.395 7.35-7.45 POC ARTERIAL BLOOD GAS PCO2 (test code=UWGVWC8D) 39.9 mmHg 35.0-45 POC TCO2 ARTERIAL (test code=POCTCO2) 25.7 POC ARTERIAL BLOOD GAS PO2 (test code=UZKEC1X) 75.7 mmHg 80-100.0 POC HCO3 ARTERIAL (test code=GLCYHG2J) 24.4 MMOL/L 22.0-26.0 POC BASE EXCESS (test code=POCBEA) -0.4 MMOL/L -4.0-4.0 POC O2 SATURATION (test code=POCO2S) 95.0 % 90-100 [id number] 15:59:00* Test Item Value Reference Range Comments SODIUM (test code=NA/ABG) 141 MEQ/L 134-147 [id number] 15:59:00* Test Item Value Reference Range Comments POTASSIUM (test code=K/ABG) 4.8 MEQ/L 3.4-5.0 [id number] 15:59:00* Test Item Value Reference Range Comments CHLORIDE (test code=CL/ABG) MEQ/L 100-108 CREATININE [id number] 15:59:00* Test Item Value Reference Range Comments CREATININE ABG (test code=CREAABG) mg/dL 0.8-1.3 [id number] 15:59:00* Test Item Value Reference Range Comments HEMOGLOBIN (test code=HGB/ABG) G/DL 12.5-16.9 [id number] 15:59:00* Test Item Value Reference Range Comments HEMATOCRIT (test code=HCT/ABG) % 37.5-50.7 POC IONIZED [id number] 15:59:00* Test Item Value Reference Range Comments POC IONIZED CALCIUM (test code=POCCA) 1.28 MMOL/L 1.12-1.32 POC [id number] 15:59:00* Test Item Value Reference Range Comments POC GLUCOSE (test code=POCGLU) 186 MG/DL 70-110 POC ARTERIAL BLOOD [id number] 15:59:00* Test Item Value Reference Range Comments POC ARTERIAL BLOOD GAS PH (test code=POCPHA) 7.395 7.35-7.45 POC ARTERIAL BLOOD GAS PCO2 (test code=VCUQLI9F) 39.9 mmHg 35.0-45 POC TCO2 ARTERIAL (test code=POCTCO2) 25.7 POC ARTERIAL BLOOD GAS PO2 (test code=ZRZYY7T) 75.7 mmHg 80-100.0 POC HCO3 ARTERIAL (test code=LOATGG3G) 24.4 MMOL/L 22.0-26.0 POC BASE EXCESS (test code=POCBEA) -0.4 MMOL/L -4.0-4.0 POC O2 SATURATION (test code=POCO2S) 95.0 % 90-100 [id number] 15:59:00* Test Item Value Reference Range Comments SODIUM (test code=NA/ABG) 141 MEQ/L 134-147 [id number] 15:59:00* Test Item Value Reference Range Comments POTASSIUM (test code=K/ABG) 4.8 MEQ/L 3.4-5.0 [id number] 15:59:00* Test Item Value Reference Range Comments CHLORIDE (test code=CL/ABG) MEQ/L 100-108 CREATININE [id number] 15:59:00* Test Item Value Reference Range Comments CREATININE ABG (test code=CREAABG) mg/dL 0.8-1.3 [id number] 15:59:00* Test Item Value Reference Range Comments HEMOGLOBIN (test code=HGB/ABG) G/DL 12.5-16.9 [id number] 15:59:00* Test Item Value Reference Range Comments HEMATOCRIT (test code=HCT/ABG) 35 % 37.5-50.7 POC IONIZED [id number] 15:59:00* Test Item Value Reference Range Comments POC IONIZED CALCIUM (test code=POCCA) 1.28 MMOL/L 1.12-1.32 POC [id number] 15:59:00* Test Item Value Reference Range Comments POC GLUCOSE (test code=POCGLU) 186 MG/DL 70-110 POC ARTERIAL BLOOD [id number] 15:59:00* Test Item Value Reference Range Comments POC ARTERIAL BLOOD GAS PH (test code=POCPHA) 7.395 7.35-7.45 POC ARTERIAL BLOOD GAS PCO2 (test code=PITHHV0N) 39.9 mmHg 35.0-45 POC TCO2 ARTERIAL (test code=POCTCO2) 25.7 POC ARTERIAL BLOOD GAS PO2 (test code=MXBCC3U) 75.7 mmHg 80-100.0 POC HCO3 ARTERIAL (test code=OPGOGT1T) 24.4 MMOL/L 22.0-26.0 POC BASE EXCESS (test code=POCBEA) -0.4 MMOL/L -4.0-4.0 POC O2 SATURATION (test code=POCO2S) 95.0 % 90-100 [id number] 15:59:00* Test Item Value Reference Range Comments SODIUM (test code=NA/ABG) 141 MEQ/L 134-147 [id number] 15:59:00* Test Item Value Reference Range Comments POTASSIUM (test code=K/ABG) 4.8 MEQ/L 3.4-5.0 [id number] 15:59:00* Test Item Value Reference Range Comments CHLORIDE (test code=CL/ABG) MEQ/L 100-108 CREATININE [id number] 15:59:00* Test Item Value Reference Range Comments CREATININE ABG (test code=CREAABG) mg/dL 0.8-1.3 [id number] 15:59:00* Test Item Value Reference Range Comments HEMOGLOBIN (test code=HGB/ABG) 11.9 G/DL 12.5-16.9 [id number] 15:59:00* Test Item Value Reference Range Comments HEMATOCRIT (test code=HCT/ABG) 35 % 37.5-50.7 POC IONIZED [id number] 15:59:00* Test Item Value Reference Range Comments POC IONIZED CALCIUM (test code=POCCA) 1.28 MMOL/L 1.12-1.32 POC [id number] 15:59:00* Test Item Value Reference Range Comments POC GLUCOSE (test code=POCGLU) 186 MG/DL 70-110 POC ARTERIAL BLOOD [id number] 15:59:00* Test Item Value Reference Range Comments POC ARTERIAL BLOOD GAS PH (test code=POCPHA) 7.395 7.35-7.45 POC ARTERIAL BLOOD GAS PCO2 (test code=MKTUCE7U) 39.9 mmHg 35.0-45 POC TCO2 ARTERIAL (test code=POCTCO2) 25.7 POC ARTERIAL BLOOD GAS PO2 (test code=DBYXN3G) 75.7 mmHg 80-100.0 POC HCO3 ARTERIAL (test code=QPEOBT1S) 24.4 MMOL/L 22.0-26.0 POC BASE EXCESS (test code=POCBEA) -0.4 MMOL/L -4.0-4.0 POC O2 SATURATION (test code=POCO2S) 95.0 % 90-100 [id number] 15:59:00* Test Item Value Reference Range Comments SODIUM (test code=NA/ABG) 141 MEQ/L 134-147 [id number] 15:59:00* Test Item Value Reference Range Comments POTASSIUM (test code=K/ABG) 4.8 MEQ/L 3.4-5.0 [id number] 15:59:00* Test Item Value Reference Range Comments CHLORIDE (test code=CL/ABG) 107 MEQ/L 100-108 CREATININE [id number] 15:59:00* Test Item Value Reference Range Comments CREATININE ABG (test code=CREAABG) mg/dL 0.8-1.3 [id number] 15:59:00* Test Item Value Reference Range Comments HEMOGLOBIN (test code=HGB/ABG) 11.9 G/DL 12.5-16.9 [id number] 15:59:00* Test Item Value Reference Range Comments HEMATOCRIT (test code=HCT/ABG) 35 % 37.5-50.7 POC IONIZED [id number] 15:59:00* Test Item Value Reference Range Comments POC IONIZED CALCIUM (test code=POCCA) 1.28 MMOL/L 1.12-1.32 POC [id number] 15:59:00* Test Item Value Reference Range Comments POC GLUCOSE (test code=POCGLU) 186 MG/DL 70-110 POC ARTERIAL BLOOD [id number] 15:59:00* Test Item Value Reference Range Comments POC ARTERIAL BLOOD GAS PH (test code=POCPHA) 7.395 7.35-7.45 POC ARTERIAL BLOOD GAS PCO2 (test code=LSLIFQ2V) 39.9 mmHg 35.0-45 POC TCO2 ARTERIAL (test code=POCTCO2) 25.7 POC ARTERIAL BLOOD GAS PO2 (test code=TENKM7Y) 75.7 mmHg 80-100.0 POC HCO3 ARTERIAL (test code=DODYVX1M) 24.4 MMOL/L 22.0-26.0 POC BASE EXCESS (test code=POCBEA) -0.4 MMOL/L -4.0-4.0 POC O2 SATURATION (test code=POCO2S) 95.0 % 90-100 [id number] 15:59:00* Test Item Value Reference Range Comments SODIUM (test code=NA/ABG) 141 MEQ/L 134-147 [id number] 15:59:00* Test Item Value Reference Range Comments POTASSIUM (test code=K/ABG) 4.8 MEQ/L 3.4-5.0 [id number] 15:59:00* Test Item Value Reference Range Comments CHLORIDE (test code=CL/ABG) 107 MEQ/L 100-108 CREATININE [id number] 15:59:00* Test Item Value Reference Range Comments CREATININE ABG (test code=CREAABG) 1.0 mg/dL 0.8-1.3 [id number] 15:59:00* Test Item Value Reference Range Comments HEMOGLOBIN (test code=HGB/ABG) 11.9 G/DL 12.5-16.9 [id number] 15:59:00* Test Item Value Reference Range Comments HEMATOCRIT (test code=HCT/ABG) 35 % 37.5-50.7 POC IONIZED [id number] 15:59:00* Test Item Value Reference Range Comments POC IONIZED CALCIUM (test code=POCCA) 1.28 MMOL/L 1.12-1.32 POC [id number] 15:59:00* Test Item Value Reference Range Comments POC GLUCOSE (test code=POCGLU) 186 MG/DL 70-110 POC ARTERIAL BLOOD [id number] 15:04:00* Test Item Value Reference Range Comments POC ARTERIAL BLOOD GAS PH (test code=POCPHA) 7.465 7.35-7.45 POC ARTERIAL BLOOD GAS PCO2 (test code=BMCRFS5T) 39.4 mmHg 35.0-45 POC TCO2 ARTERIAL (test code=POCTCO2) 29.6 POC ARTERIAL BLOOD GAS PO2 (test code=GETNF7K) 443.8 mmHg 80-100.0 POC HCO3 ARTERIAL (test code=HGFNMR0B) 28.4 MMOL/L 22.0-26.0 POC BASE EXCESS (test code=POCBEA) 4.3 MMOL/L -4.0-4.0 POC O2 SATURATION (test code=POCO2S) 100.0 % 90-100 [id number] 15:04:00* Test Item Value Reference Range Comments SODIUM (test code=NA/ABG) MEQ/L 134-147 [id number] 15:04:00* Test Item Value Reference Range Comments POTASSIUM (test code=K/ABG) MEQ/L 3.4-5.0 [id number] 15:04:00* Test Item Value Reference Range Comments CHLORIDE (test code=CL/ABG) MEQ/L 100-108 CREATININE [id number] 15:04:00* Test Item Value Reference Range Comments CREATININE ABG (test code=CREAABG) mg/dL 0.8-1.3 [id number] 15:04:00* Test Item Value Reference Range Comments HEMOGLOBIN (test code=HGB/ABG) G/DL 12.5-16.9 [id number] 15:04:00* Test Item Value Reference Range Comments HEMATOCRIT (test code=HCT/ABG) % 37.5-50.7 POC IONIZED [id number] 15:04:00* Test Item Value Reference Range Comments POC IONIZED CALCIUM (test code=POCCA) MMOL/L 1.12-1.32 POC [id number] 15:04:00* Test Item Value Reference Range Comments POC GLUCOSE (test code=POCGLU) MG/DL 70-110 POC ARTERIAL BLOOD [id number] 15:04:00* Test Item Value Reference Range Comments POC ARTERIAL BLOOD GAS PH (test code=POCPHA) 7.465 7.35-7.45 POC ARTERIAL BLOOD GAS PCO2 (test code=OBXSKD5U) 39.4 mmHg 35.0-45 POC TCO2 ARTERIAL (test code=POCTCO2) 29.6 POC ARTERIAL BLOOD GAS PO2 (test code=GMKFP9P) 443.8 mmHg 80-100.0 POC HCO3 ARTERIAL (test code=ZFRQMW8P) 28.4 MMOL/L 22.0-26.0 POC BASE EXCESS (test code=POCBEA) 4.3 MMOL/L -4.0-4.0 POC O2 SATURATION (test code=POCO2S) 100.0 % 90-100 [id number] 15:04:00* Test Item Value Reference Range Comments SODIUM (test code=NA/ABG) 141 MEQ/L 134-147 [id number] 15:04:00* Test Item Value Reference Range Comments POTASSIUM (test code=K/ABG) MEQ/L 3.4-5.0 [id number] 15:04:00* Test Item Value Reference Range Comments CHLORIDE (test code=CL/ABG) MEQ/L 100-108 CREATININE [id number] 15:04:00* Test Item Value Reference Range Comments CREATININE ABG (test code=CREAABG) mg/dL 0.8-1.3 [id number] 15:04:00* Test Item Value Reference Range Comments HEMOGLOBIN (test code=HGB/ABG) G/DL 12.5-16.9 [id number] 15:04:00* Test Item Value Reference Range Comments HEMATOCRIT (test code=HCT/ABG) % 37.5-50.7 POC IONIZED [id number] 15:04:00* Test Item Value Reference Range Comments POC IONIZED CALCIUM (test code=POCCA) MMOL/L 1.12-1.32 POC [id number] 15:04:00* Test Item Value Reference Range Comments POC GLUCOSE (test code=POCGLU) MG/DL 70-110 POC ARTERIAL BLOOD [id number] 15:04:00* Test Item Value Reference Range Comments POC ARTERIAL BLOOD GAS PH (test code=POCPHA) 7.465 7.35-7.45 POC ARTERIAL BLOOD GAS PCO2 (test code=SUVZGD2E) 39.4 mmHg 35.0-45 POC TCO2 ARTERIAL (test code=POCTCO2) 29.6 POC ARTERIAL BLOOD GAS PO2 (test code=DANMA8M) 443.8 mmHg 80-100.0 POC HCO3 ARTERIAL (test code=CFXFJD0V) 28.4 MMOL/L 22.0-26.0 POC BASE EXCESS (test code=POCBEA) 4.3 MMOL/L -4.0-4.0 POC O2 SATURATION (test code=POCO2S) 100.0 % 90-100 [id number] 15:04:00* Test Item Value Reference Range Comments SODIUM (test code=NA/ABG) 141 MEQ/L 134-147 [id number] 15:04:00* Test Item Value Reference Range Comments POTASSIUM (test code=K/ABG) 5.4 MEQ/L 3.4-5.0 [id number] 15:04:00* Test Item Value Reference Range Comments CHLORIDE (test code=CL/ABG) MEQ/L 100-108 CREATININE [id number] 15:04:00* Test Item Value Reference Range Comments CREATININE ABG (test code=CREAABG) mg/dL 0.8-1.3 [id number] 15:04:00* Test Item Value Reference Range Comments HEMOGLOBIN (test code=HGB/ABG) G/DL 12.5-16.9 [id number] 15:04:00* Test Item Value Reference Range Comments HEMATOCRIT (test code=HCT/ABG) % 37.5-50.7 POC IONIZED [id number] 15:04:00* Test Item Value Reference Range Comments POC IONIZED CALCIUM (test code=POCCA) MMOL/L 1.12-1.32 POC [id number] 15:04:00* Test Item Value Reference Range Comments POC GLUCOSE (test code=POCGLU) MG/DL 70-110 POC ARTERIAL BLOOD [id number] 15:04:00* Test Item Value Reference Range Comments POC ARTERIAL BLOOD GAS PH (test code=POCPHA) 7.465 7.35-7.45 POC ARTERIAL BLOOD GAS PCO2 (test code=MRPWRL4Q) 39.4 mmHg 35.0-45 POC TCO2 ARTERIAL (test code=POCTCO2) 29.6 POC ARTERIAL BLOOD GAS PO2 (test code=XJUHD0C) 443.8 mmHg 80-100.0 POC HCO3 ARTERIAL (test code=RFEUMA5G) 28.4 MMOL/L 22.0-26.0 POC BASE EXCESS (test code=POCBEA) 4.3 MMOL/L -4.0-4.0 POC O2 SATURATION (test code=POCO2S) 100.0 % 90-100 [id number] 15:04:00* Test Item Value Reference Range Comments SODIUM (test code=NA/ABG) 141 MEQ/L 134-147 [id number] 15:04:00* Test Item Value Reference Range Comments POTASSIUM (test code=K/ABG) 5.4 MEQ/L 3.4-5.0 [id number] 15:04:00* Test Item Value Reference Range Comments CHLORIDE (test code=CL/ABG) MEQ/L 100-108 CREATININE [id number] 15:04:00* Test Item Value Reference Range Comments CREATININE ABG (test code=CREAABG) mg/dL 0.8-1.3 [id number] 15:04:00* Test Item Value Reference Range Comments HEMOGLOBIN (test code=HGB/ABG) G/DL 12.5-16.9 [id number] 15:04:00* Test Item Value Reference Range Comments HEMATOCRIT (test code=HCT/ABG) % 37.5-50.7 POC IONIZED [id number] 15:04:00* Test Item Value Reference Range Comments POC IONIZED CALCIUM (test code=POCCA) 1.03 MMOL/L 1.12-1.32 POC [id number] 15:04:00* Test Item Value Reference Range Comments POC GLUCOSE (test code=POCGLU) MG/DL 70-110 POC ARTERIAL BLOOD [id number] 15:04:00* Test Item Value Reference Range Comments POC ARTERIAL BLOOD GAS PH (test code=POCPHA) 7.465 7.35-7.45 POC ARTERIAL BLOOD GAS PCO2 (test code=IBRGAQ5E) 39.4 mmHg 35.0-45 POC TCO2 ARTERIAL (test code=POCTCO2) 29.6 POC ARTERIAL BLOOD GAS PO2 (test code=UOVFY8N) 443.8 mmHg 80-100.0 POC HCO3 ARTERIAL (test code=PWGMVM3D) 28.4 MMOL/L 22.0-26.0 POC BASE EXCESS (test code=POCBEA) 4.3 MMOL/L -4.0-4.0 POC O2 SATURATION (test code=POCO2S) 100.0 % 90-100 [id number] 15:04:00* Test Item Value Reference Range Comments SODIUM (test code=NA/ABG) 141 MEQ/L 134-147 [id number] 15:04:00* Test Item Value Reference Range Comments POTASSIUM (test code=K/ABG) 5.4 MEQ/L 3.4-5.0 [id number] 15:04:00* Test Item Value Reference Range Comments CHLORIDE (test code=CL/ABG) MEQ/L 100-108 CREATININE [id number] 15:04:00* Test Item Value Reference Range Comments CREATININE ABG (test code=CREAABG) mg/dL 0.8-1.3 [id number] 15:04:00* Test Item Value Reference Range Comments HEMOGLOBIN (test code=HGB/ABG) G/DL 12.5-16.9 [id number] 15:04:00* Test Item Value Reference Range Comments HEMATOCRIT (test code=HCT/ABG) % 37.5-50.7 POC IONIZED [id number] 15:04:00* Test Item Value Reference Range Comments POC IONIZED CALCIUM (test code=POCCA) 1.03 MMOL/L 1.12-1.32 POC [id number] 15:04:00* Test Item Value Reference Range Comments POC GLUCOSE (test code=POCGLU) 134 MG/DL 70-110 POC ARTERIAL BLOOD [id number] 15:04:00* Test Item Value Reference Range Comments POC ARTERIAL BLOOD GAS PH (test code=POCPHA) 7.465 7.35-7.45 POC ARTERIAL BLOOD GAS PCO2 (test code=IRWOYH7V) 39.4 mmHg 35.0-45 POC TCO2 ARTERIAL (test code=POCTCO2) 29.6 POC ARTERIAL BLOOD GAS PO2 (test code=RNOMH6M) 443.8 mmHg 80-100.0 POC HCO3 ARTERIAL (test code=MEPERF3X) 28.4 MMOL/L 22.0-26.0 POC BASE EXCESS (test code=POCBEA) 4.3 MMOL/L -4.0-4.0 POC O2 SATURATION (test code=POCO2S) 100.0 % 90-100 [id number] 15:04:00* Test Item Value Reference Range Comments SODIUM (test code=NA/ABG) 141 MEQ/L 134-147 [id number] 15:04:00* Test Item Value Reference Range Comments POTASSIUM (test code=K/ABG) 5.4 MEQ/L 3.4-5.0 [id number] 15:04:00* Test Item Value Reference Range Comments CHLORIDE (test code=CL/ABG) MEQ/L 100-108 CREATININE [id number] 15:04:00* Test Item Value Reference Range Comments CREATININE ABG (test code=CREAABG) mg/dL 0.8-1.3 [id number] 15:04:00* Test Item Value Reference Range Comments HEMOGLOBIN (test code=HGB/ABG) G/DL 12.5-16.9 [id number] 15:04:00* Test Item Value Reference Range Comments HEMATOCRIT (test code=HCT/ABG) 29 % 37.5-50.7 POC IONIZED [id number] 15:04:00* Test Item Value Reference Range Comments POC IONIZED CALCIUM (test code=POCCA) 1.03 MMOL/L 1.12-1.32 POC [id number] 15:04:00* Test Item Value Reference Range Comments POC GLUCOSE (test code=POCGLU) 134 MG/DL 70-110 POC ARTERIAL BLOOD [id number] 15:04:00* Test Item Value Reference Range Comments POC ARTERIAL BLOOD GAS PH (test code=POCPHA) 7.465 7.35-7.45 POC ARTERIAL BLOOD GAS PCO2 (test code=MVGLUZ4G) 39.4 mmHg 35.0-45 POC TCO2 ARTERIAL (test code=POCTCO2) 29.6 POC ARTERIAL BLOOD GAS PO2 (test code=IJTBL9V) 443.8 mmHg 80-100.0 POC HCO3 ARTERIAL (test code=LVODNY2Y) 28.4 MMOL/L 22.0-26.0 POC BASE EXCESS (test code=POCBEA) 4.3 MMOL/L -4.0-4.0 POC O2 SATURATION (test code=POCO2S) 100.0 % 90-100 [id number] 15:04:00* Test Item Value Reference Range Comments SODIUM (test code=NA/ABG) 141 MEQ/L 134-147 [id number] 15:04:00* Test Item Value Reference Range Comments POTASSIUM (test code=K/ABG) 5.4 MEQ/L 3.4-5.0 [id number] 15:04:00* Test Item Value Reference Range Comments CHLORIDE (test code=CL/ABG) MEQ/L 100-108 CREATININE [id number] 15:04:00* Test Item Value Reference Range Comments CREATININE ABG (test code=CREAABG) mg/dL 0.8-1.3 [id number] 15:04:00* Test Item Value Reference Range Comments HEMOGLOBIN (test code=HGB/ABG) 10.0 G/DL 12.5-16.9 [id number] 15:04:00* Test Item Value Reference Range Comments HEMATOCRIT (test code=HCT/ABG) 29 % 37.5-50.7 POC IONIZED [id number] 15:04:00* Test Item Value Reference Range Comments POC IONIZED CALCIUM (test code=POCCA) 1.03 MMOL/L 1.12-1.32 POC [id number] 15:04:00* Test Item Value Reference Range Comments POC GLUCOSE (test code=POCGLU) 134 MG/DL 70-110 POC ARTERIAL BLOOD [id number] 15:04:00* Test Item Value Reference Range Comments POC ARTERIAL BLOOD GAS PH (test code=POCPHA) 7.465 7.35-7.45 POC ARTERIAL BLOOD GAS PCO2 (test code=HQNZKC1N) 39.4 mmHg 35.0-45 POC TCO2 ARTERIAL (test code=POCTCO2) 29.6 POC ARTERIAL BLOOD GAS PO2 (test code=IBZVH9P) 443.8 mmHg 80-100.0 POC HCO3 ARTERIAL (test code=BMGEXT9Y) 28.4 MMOL/L 22.0-26.0 POC BASE EXCESS (test code=POCBEA) 4.3 MMOL/L -4.0-4.0 POC O2 SATURATION (test code=POCO2S) 100.0 % 90-100 [id number] 15:04:00* Test Item Value Reference Range Comments SODIUM (test code=NA/ABG) 141 MEQ/L 134-147 [id number] 15:04:00* Test Item Value Reference Range Comments POTASSIUM (test code=K/ABG) 5.4 MEQ/L 3.4-5.0 [id number] 15:04:00* Test Item Value Reference Range Comments CHLORIDE (test code=CL/ABG) 103 MEQ/L 100-108 CREATININE [id number] 15:04:00* Test Item Value Reference Range Comments CREATININE ABG (test code=CREAABG) mg/dL 0.8-1.3 [id number] 15:04:00* Test Item Value Reference Range Comments HEMOGLOBIN (test code=HGB/ABG) 10.0 G/DL 12.5-16.9 [id number] 15:04:00* Test Item Value Reference Range Comments HEMATOCRIT (test code=HCT/ABG) 29 % 37.5-50.7 POC IONIZED [id number] 15:04:00* Test Item Value Reference Range Comments POC IONIZED CALCIUM (test code=POCCA) 1.03 MMOL/L 1.12-1.32 POC [id number] 15:04:00* Test Item Value Reference Range Comments POC GLUCOSE (test code=POCGLU) 134 MG/DL 70-110 POC ARTERIAL BLOOD [id number] 15:04:00* Test Item Value Reference Range Comments POC ARTERIAL BLOOD GAS PH (test code=POCPHA) 7.465 7.35-7.45 POC ARTERIAL BLOOD GAS PCO2 (test code=UJIBDZ9S) 39.4 mmHg 35.0-45 POC TCO2 ARTERIAL (test code=POCTCO2) 29.6 POC ARTERIAL BLOOD GAS PO2 (test code=BULDA0H) 443.8 mmHg 80-100.0 POC HCO3 ARTERIAL (test code=RZIRFN3X) 28.4 MMOL/L 22.0-26.0 POC BASE EXCESS (test code=POCBEA) 4.3 MMOL/L -4.0-4.0 POC O2 SATURATION (test code=POCO2S) 100.0 % 90-100 [id number] 15:04:00* Test Item Value Reference Range Comments SODIUM (test code=NA/ABG) 141 MEQ/L 134-147 [id number] 15:04:00* Test Item Value Reference Range Comments POTASSIUM (test code=K/ABG) 5.4 MEQ/L 3.4-5.0 [id number] 15:04:00* Test Item Value Reference Range Comments CHLORIDE (test code=CL/ABG) 103 MEQ/L 100-108 CREATININE [id number] 15:04:00* Test Item Value Reference Range Comments CREATININE ABG (test code=CREAABG) 0.6 mg/dL 0.8-1.3 [id number] 15:04:00* Test Item Value Reference Range Comments HEMOGLOBIN (test code=HGB/ABG) 10.0 G/DL 12.5-16.9 [id number] 15:04:00* Test Item Value Reference Range Comments HEMATOCRIT (test code=HCT/ABG) 29 % 37.5-50.7 POC IONIZED [id number] 15:04:00* Test Item Value Reference Range Comments POC IONIZED CALCIUM (test code=POCCA) 1.03 MMOL/L 1.12-1.32 POC [id number] 15:04:00* Test Item Value Reference Range Comments POC GLUCOSE (test code=POCGLU) 134 MG/DL 70-110 POC ARTERIAL BLOOD [id number] 13:59:00* Test Item Value Reference Range Comments POC ARTERIAL BLOOD GAS PH (test code=POCPHA) 7.264 7.35-7.45 POC ARTERIAL BLOOD GAS PCO2 (test code=KAFFMT8I) 65.6 mmHg 35.0-45 POC TCO2 ARTERIAL (test code=POCTCO2) 31.7 POC ARTERIAL BLOOD GAS PO2 (test code=XLCOV6E) 55.0 mmHg 80-100.0 POC HCO3 ARTERIAL (test code=HUYEMI9N) 29.7 MMOL/L 22.0-26.0 POC BASE EXCESS (test code=POCBEA) 0.7 MMOL/L -4.0-4.0 POC O2 SATURATION (test code=POCO2S) 82.3 % 90-100 [id number] 13:59:00* Test Item Value Reference Range Comments SODIUM (test code=NA/ABG) MEQ/L 134-147 [id number] 13:59:00* Test Item Value Reference Range Comments POTASSIUM (test code=K/ABG) MEQ/L 3.4-5.0 [id number] 13:59:00* Test Item Value Reference Range Comments CHLORIDE (test code=CL/ABG) MEQ/L 100-108 CREATININE [id number] 13:59:00* Test Item Value Reference Range Comments CREATININE ABG (test code=CREAABG) mg/dL 0.8-1.3 [id number] 13:59:00* Test Item Value Reference Range Comments HEMOGLOBIN (test code=HGB/ABG) G/DL 12.5-16.9 [id number] 13:59:00* Test Item Value Reference Range Comments HEMATOCRIT (test code=HCT/ABG) % 37.5-50.7 POC IONIZED [id number] 13:59:00* Test Item Value Reference Range Comments POC IONIZED CALCIUM (test code=POCCA) MMOL/L 1.12-1.32 POC [id number] 13:59:00* Test Item Value Reference Range Comments POC GLUCOSE (test code=POCGLU) MG/DL 70-110 POC ARTERIAL BLOOD [id number] 13:59:00* Test Item Value Reference Range Comments POC ARTERIAL BLOOD GAS PH (test code=POCPHA) 7.264 7.35-7.45 POC ARTERIAL BLOOD GAS PCO2 (test code=FVFFBY2K) 65.6 mmHg 35.0-45 POC TCO2 ARTERIAL (test code=POCTCO2) 31.7 POC ARTERIAL BLOOD GAS PO2 (test code=XWCSL3F) 55.0 mmHg 80-100.0 POC HCO3 ARTERIAL (test code=ZFFVCO4F) 29.7 MMOL/L 22.0-26.0 POC BASE EXCESS (test code=POCBEA) 0.7 MMOL/L -4.0-4.0 POC O2 SATURATION (test code=POCO2S) 82.3 % 90-100 [id number] 13:59:00* Test Item Value Reference Range Comments SODIUM (test code=NA/ABG) 141 MEQ/L 134-147 [id number] 13:59:00* Test Item Value Reference Range Comments POTASSIUM (test code=K/ABG) MEQ/L 3.4-5.0 [id number] 13:59:00* Test Item Value Reference Range Comments CHLORIDE (test code=CL/ABG) MEQ/L 100-108 CREATININE [id number] 13:59:00* Test Item Value Reference Range Comments CREATININE ABG (test code=CREAABG) mg/dL 0.8-1.3 [id number] 13:59:00* Test Item Value Reference Range Comments HEMOGLOBIN (test code=HGB/ABG) G/DL 12.5-16.9 [id number] 13:59:00* Test Item Value Reference Range Comments HEMATOCRIT (test code=HCT/ABG) % 37.5-50.7 POC IONIZED [id number] 13:59:00* Test Item Value Reference Range Comments POC IONIZED CALCIUM (test code=POCCA) MMOL/L 1.12-1.32 POC [id number] 13:59:00* Test Item Value Reference Range Comments POC GLUCOSE (test code=POCGLU) MG/DL 70-110 POC ARTERIAL BLOOD [id number] 13:59:00* Test Item Value Reference Range Comments POC ARTERIAL BLOOD GAS PH (test code=POCPHA) 7.264 7.35-7.45 POC ARTERIAL BLOOD GAS PCO2 (test code=MQPUHL3D) 65.6 mmHg 35.0-45 POC TCO2 ARTERIAL (test code=POCTCO2) 31.7 POC ARTERIAL BLOOD GAS PO2 (test code=PQGDW0J) 55.0 mmHg 80-100.0 POC HCO3 ARTERIAL (test code=XIRJES2X) 29.7 MMOL/L 22.0-26.0 POC BASE EXCESS (test code=POCBEA) 0.7 MMOL/L -4.0-4.0 POC O2 SATURATION (test code=POCO2S) 82.3 % 90-100 [id number] 13:59:00* Test Item Value Reference Range Comments SODIUM (test code=NA/ABG) 141 MEQ/L 134-147 [id number] 13:59:00* Test Item Value Reference Range Comments POTASSIUM (test code=K/ABG) 3.9 MEQ/L 3.4-5.0 [id number] 13:59:00* Test Item Value Reference Range Comments CHLORIDE (test code=CL/ABG) MEQ/L 100-108 CREATININE [id number] 13:59:00* Test Item Value Reference Range Comments CREATININE ABG (test code=CREAABG) mg/dL 0.8-1.3 [id number] 13:59:00* Test Item Value Reference Range Comments HEMOGLOBIN (test code=HGB/ABG) G/DL 12.5-16.9 [id number] 13:59:00* Test Item Value Reference Range Comments HEMATOCRIT (test code=HCT/ABG) % 37.5-50.7 POC IONIZED [id number] 13:59:00* Test Item Value Reference Range Comments POC IONIZED CALCIUM (test code=POCCA) MMOL/L 1.12-1.32 POC [id number] 13:59:00* Test Item Value Reference Range Comments POC GLUCOSE (test code=POCGLU) MG/DL 70-110 POC ARTERIAL BLOOD [id number] 13:59:00* Test Item Value Reference Range Comments POC ARTERIAL BLOOD GAS PH (test code=POCPHA) 7.264 7.35-7.45 POC ARTERIAL BLOOD GAS PCO2 (test code=TAVZUT1W) 65.6 mmHg 35.0-45 POC TCO2 ARTERIAL (test code=POCTCO2) 31.7 POC ARTERIAL BLOOD GAS PO2 (test code=CWGFD2M) 55.0 mmHg 80-100.0 POC HCO3 ARTERIAL (test code=IEUFXM9A) 29.7 MMOL/L 22.0-26.0 POC BASE EXCESS (test code=POCBEA) 0.7 MMOL/L -4.0-4.0 POC O2 SATURATION (test code=POCO2S) 82.3 % 90-100 [id number] 13:59:00* Test Item Value Reference Range Comments SODIUM (test code=NA/ABG) 141 MEQ/L 134-147 [id number] 13:59:00* Test Item Value Reference Range Comments POTASSIUM (test code=K/ABG) 3.9 MEQ/L 3.4-5.0 [id number] 13:59:00* Test Item Value Reference Range Comments CHLORIDE (test code=CL/ABG) MEQ/L 100-108 CREATININE [id number] 13:59:00* Test Item Value Reference Range Comments CREATININE ABG (test code=CREAABG) mg/dL 0.8-1.3 [id number] 13:59:00* Test Item Value Reference Range Comments HEMOGLOBIN (test code=HGB/ABG) G/DL 12.5-16.9 [id number] 13:59:00* Test Item Value Reference Range Comments HEMATOCRIT (test code=HCT/ABG) % 37.5-50.7 POC IONIZED [id number] 13:59:00* Test Item Value Reference Range Comments POC IONIZED CALCIUM (test code=POCCA) 1.16 MMOL/L 1.12-1.32 POC [id number] 13:59:00* Test Item Value Reference Range Comments POC GLUCOSE (test code=POCGLU) MG/DL 70-110 POC ARTERIAL BLOOD [id number] 13:59:00* Test Item Value Reference Range Comments POC ARTERIAL BLOOD GAS PH (test code=POCPHA) 7.264 7.35-7.45 POC ARTERIAL BLOOD GAS PCO2 (test code=RBZUXT3Z) 65.6 mmHg 35.0-45 POC TCO2 ARTERIAL (test code=POCTCO2) 31.7 POC ARTERIAL BLOOD GAS PO2 (test code=PRNZM9A) 55.0 mmHg 80-100.0 POC HCO3 ARTERIAL (test code=DCVSFT1S) 29.7 MMOL/L 22.0-26.0 POC BASE EXCESS (test code=POCBEA) 0.7 MMOL/L -4.0-4.0 POC O2 SATURATION (test code=POCO2S) 82.3 % 90-100 [id number] 13:59:00* Test Item Value Reference Range Comments SODIUM (test code=NA/ABG) 141 MEQ/L 134-147 [id number] 13:59:00* Test Item Value Reference Range Comments POTASSIUM (test code=K/ABG) 3.9 MEQ/L 3.4-5.0 [id number] 13:59:00* Test Item Value Reference Range Comments CHLORIDE (test code=CL/ABG) MEQ/L 100-108 CREATININE [id number] 13:59:00* Test Item Value Reference Range Comments CREATININE ABG (test code=CREAABG) mg/dL 0.8-1.3 [id number] 13:59:00* Test Item Value Reference Range Comments HEMOGLOBIN (test code=HGB/ABG) G/DL 12.5-16.9 [id number] 13:59:00* Test Item Value Reference Range Comments HEMATOCRIT (test code=HCT/ABG) % 37.5-50.7 POC IONIZED [id number] 13:59:00* Test Item Value Reference Range Comments POC IONIZED CALCIUM (test code=POCCA) 1.16 MMOL/L 1.12-1.32 POC [id number] 13:59:00* Test Item Value Reference Range Comments POC GLUCOSE (test code=POCGLU) 146 MG/DL 70-110 POC ARTERIAL BLOOD [id number] 13:59:00* Test Item Value Reference Range Comments POC ARTERIAL BLOOD GAS PH (test code=POCPHA) 7.264 7.35-7.45 POC ARTERIAL BLOOD GAS PCO2 (test code=LKPREJ2Q) 65.6 mmHg 35.0-45 POC TCO2 ARTERIAL (test code=POCTCO2) 31.7 POC ARTERIAL BLOOD GAS PO2 (test code=NBRDO7X) 55.0 mmHg 80-100.0 POC HCO3 ARTERIAL (test code=IHFRUH8V) 29.7 MMOL/L 22.0-26.0 POC BASE EXCESS (test code=POCBEA) 0.7 MMOL/L -4.0-4.0 POC O2 SATURATION (test code=POCO2S) 82.3 % 90-100 [id number] 13:59:00* Test Item Value Reference Range Comments SODIUM (test code=NA/ABG) 141 MEQ/L 134-147 [id number] 13:59:00* Test Item Value Reference Range Comments POTASSIUM (test code=K/ABG) 3.9 MEQ/L 3.4-5.0 [id number] 13:59:00* Test Item Value Reference Range Comments CHLORIDE (test code=CL/ABG) MEQ/L 100-108 CREATININE [id number] 13:59:00* Test Item Value Reference Range Comments CREATININE ABG (test code=CREAABG) mg/dL 0.8-1.3 [id number] 13:59:00* Test Item Value Reference Range Comments HEMOGLOBIN (test code=HGB/ABG) G/DL 12.5-16.9 [id number] 13:59:00* Test Item Value Reference Range Comments HEMATOCRIT (test code=HCT/ABG) 44 % 37.5-50.7 POC IONIZED [id number] 13:59:00* Test Item Value Reference Range Comments POC IONIZED CALCIUM (test code=POCCA) 1.16 MMOL/L 1.12-1.32 POC [id number] 13:59:00* Test Item Value Reference Range Comments POC GLUCOSE (test code=POCGLU) 146 MG/DL 70-110 POC ARTERIAL BLOOD [id number] 13:59:00* Test Item Value Reference Range Comments POC ARTERIAL BLOOD GAS PH (test code=POCPHA) 7.264 7.35-7.45 POC ARTERIAL BLOOD GAS PCO2 (test code=OAMTMS9K) 65.6 mmHg 35.0-45 POC TCO2 ARTERIAL (test code=POCTCO2) 31.7 POC ARTERIAL BLOOD GAS PO2 (test code=SXTAS0R) 55.0 mmHg 80-100.0 POC HCO3 ARTERIAL (test code=URKLZZ2T) 29.7 MMOL/L 22.0-26.0 POC BASE EXCESS (test code=POCBEA) 0.7 MMOL/L -4.0-4.0 POC O2 SATURATION (test code=POCO2S) 82.3 % 90-100 [id number] 13:59:00* Test Item Value Reference Range Comments SODIUM (test code=NA/ABG) 141 MEQ/L 134-147 [id number] 13:59:00* Test Item Value Reference Range Comments POTASSIUM (test code=K/ABG) 3.9 MEQ/L 3.4-5.0 [id number] 13:59:00* Test Item Value Reference Range Comments CHLORIDE (test code=CL/ABG) MEQ/L 100-108 CREATININE [id number] 13:59:00* Test Item Value Reference Range Comments CREATININE ABG (test code=CREAABG) mg/dL 0.8-1.3 [id number] 13:59:00* Test Item Value Reference Range Comments HEMOGLOBIN (test code=HGB/ABG) 15.1 G/DL 12.5-16.9 [id number] 13:59:00* Test Item Value Reference Range Comments HEMATOCRIT (test code=HCT/ABG) 44 % 37.5-50.7 POC IONIZED [id number] 13:59:00* Test Item Value Reference Range Comments POC IONIZED CALCIUM (test code=POCCA) 1.16 MMOL/L 1.12-1.32 POC [id number] 13:59:00* Test Item Value Reference Range Comments POC GLUCOSE (test code=POCGLU) 146 MG/DL 70-110 POC ARTERIAL BLOOD [id number] 13:59:00* Test Item Value Reference Range Comments POC ARTERIAL BLOOD GAS PH (test code=POCPHA) 7.264 7.35-7.45 POC ARTERIAL BLOOD GAS PCO2 (test code=SHWNSD4J) 65.6 mmHg 35.0-45 POC TCO2 ARTERIAL (test code=POCTCO2) 31.7 POC ARTERIAL BLOOD GAS PO2 (test code=GWQFK4S) 55.0 mmHg 80-100.0 POC HCO3 ARTERIAL (test code=DATAED9K) 29.7 MMOL/L 22.0-26.0 POC BASE EXCESS (test code=POCBEA) 0.7 MMOL/L -4.0-4.0 POC O2 SATURATION (test code=POCO2S) 82.3 % 90-100 [id number] 13:59:00* Test Item Value Reference Range Comments SODIUM (test code=NA/ABG) 141 MEQ/L 134-147 [id number] 13:59:00* Test Item Value Reference Range Comments POTASSIUM (test code=K/ABG) 3.9 MEQ/L 3.4-5.0 [id number] 13:59:00* Test Item Value Reference Range Comments CHLORIDE (test code=CL/ABG) 103 MEQ/L 100-108 CREATININE [id number] 13:59:00* Test Item Value Reference Range Comments CREATININE ABG (test code=CREAABG) mg/dL 0.8-1.3 [id number] 13:59:00* Test Item Value Reference Range Comments HEMOGLOBIN (test code=HGB/ABG) 15.1 G/DL 12.5-16.9 [id number] 13:59:00* Test Item Value Reference Range Comments HEMATOCRIT (test code=HCT/ABG) 44 % 37.5-50.7 POC IONIZED [id number] 13:59:00* Test Item Value Reference Range Comments POC IONIZED CALCIUM (test code=POCCA) 1.16 MMOL/L 1.12-1.32 POC [id number] 13:59:00* Test Item Value Reference Range Comments POC GLUCOSE (test code=POCGLU) 146 MG/DL 70-110 POC ARTERIAL BLOOD [id number] 13:59:00* Test Item Value Reference Range Comments POC ARTERIAL BLOOD GAS PH (test code=POCPHA) 7.264 7.35-7.45 POC ARTERIAL BLOOD GAS PCO2 (test code=ASTJOF9G) 65.6 mmHg 35.0-45 POC TCO2 ARTERIAL (test code=POCTCO2) 31.7 POC ARTERIAL BLOOD GAS PO2 (test code=VQRDZ3S) 55.0 mmHg 80-100.0 POC HCO3 ARTERIAL (test code=XBSEYN0G) 29.7 MMOL/L 22.0-26.0 POC BASE EXCESS (test code=POCBEA) 0.7 MMOL/L -4.0-4.0 POC O2 SATURATION (test code=POCO2S) 82.3 % 90-100 [id number] 13:59:00* Test Item Value Reference Range Comments SODIUM (test code=NA/ABG) 141 MEQ/L 134-147 [id number] 13:59:00* Test Item Value Reference Range Comments POTASSIUM (test code=K/ABG) 3.9 MEQ/L 3.4-5.0 [id number] 13:59:00* Test Item Value Reference Range Comments CHLORIDE (test code=CL/ABG) 103 MEQ/L 100-108 CREATININE [id number] 13:59:00* Test Item Value Reference Range Comments CREATININE ABG (test code=CREAABG) 0.9 mg/dL 0.8-1.3 [id number] 13:59:00* Test Item Value Reference Range Comments HEMOGLOBIN (test code=HGB/ABG) 15.1 G/DL 12.5-16.9 [id number] 13:59:00* Test Item Value Reference Range Comments HEMATOCRIT (test code=HCT/ABG) 44 % 37.5-50.7 POC IONIZED [id number] 13:59:00* Test Item Value Reference Range Comments POC IONIZED CALCIUM (test code=POCCA) 1.16 MMOL/L 1.12-1.32 POC [id number] 13:59:00* Test Item Value Reference Range Comments POC GLUCOSE (test code=POCGLU) 146 MG/DL 70-110 POC ARTERIAL BLOOD [id number] 10:52:00* Test Item Value Reference Range Comments POC ARTERIAL BLOOD GAS PH (test code=POCPHA) 7.404 7.35-7.45 POC ARTERIAL BLOOD GAS PCO2 (test code=QLFOOW2Y) 42.2 mmHg 35.0-45 POC TCO2 ARTERIAL (test code=POCTCO2) 27.7 POC ARTERIAL BLOOD GAS PO2 (test code=OWUEL4F) 168.0 mmHg 80-100.0 POC HCO3 ARTERIAL (test code=JXENRB9H) 26.4 MMOL/L 22.0-26.0 POC BASE EXCESS (test code=POCBEA) 1.3 MMOL/L -4.0-4.0 POC O2 SATURATION (test code=POCO2S) 99.5 % 90-100 [id number] 10:52:00* Test Item Value Reference Range Comments SODIUM (test code=NA/ABG) MEQ/L 134-147 [id number] 10:52:00* Test Item Value Reference Range Comments POTASSIUM (test code=K/ABG) MEQ/L 3.4-5.0 [id number] 10:52:00* Test Item Value Reference Range Comments CHLORIDE (test code=CL/ABG) MEQ/L 100-108 CREATININE [id number] 10:52:00* Test Item Value Reference Range Comments CREATININE ABG (test code=CREAABG) mg/dL 0.8-1.3 [id number] 10:52:00* Test Item Value Reference Range Comments HEMOGLOBIN (test code=HGB/ABG) G/DL 12.5-16.9 [id number] 10:52:00* Test Item Value Reference Range Comments HEMATOCRIT (test code=HCT/ABG) % 37.5-50.7 POC IONIZED [id number] 10:52:00* Test Item Value Reference Range Comments POC IONIZED CALCIUM (test code=POCCA) MMOL/L 1.12-1.32 POC [id number] 10:52:00* Test Item Value Reference Range Comments POC GLUCOSE (test code=POCGLU) MG/DL 70-110 POC ARTERIAL BLOOD [id number] 10:52:00* Test Item Value Reference Range Comments POC ARTERIAL BLOOD GAS PH (test code=POCPHA) 7.404 7.35-7.45 POC ARTERIAL BLOOD GAS PCO2 (test code=ZHHWFF6Q) 42.2 mmHg 35.0-45 POC TCO2 ARTERIAL (test code=POCTCO2) 27.7 POC ARTERIAL BLOOD GAS PO2 (test code=AGQUR5A) 168.0 mmHg 80-100.0 POC HCO3 ARTERIAL (test code=WUCMRO6K) 26.4 MMOL/L 22.0-26.0 POC BASE EXCESS (test code=POCBEA) 1.3 MMOL/L -4.0-4.0 POC O2 SATURATION (test code=POCO2S) 99.5 % 90-100 [id number] 10:52:00* Test Item Value Reference Range Comments SODIUM (test code=NA/ABG) 139 MEQ/L 134-147 [id number] 10:52:00* Test Item Value Reference Range Comments POTASSIUM (test code=K/ABG) MEQ/L 3.4-5.0 [id number] 10:52:00* Test Item Value Reference Range Comments CHLORIDE (test code=CL/ABG) MEQ/L 100-108 CREATININE [id number] 10:52:00* Test Item Value Reference Range Comments CREATININE ABG (test code=CREAABG) mg/dL 0.8-1.3 [id number] 10:52:00* Test Item Value Reference Range Comments HEMOGLOBIN (test code=HGB/ABG) G/DL 12.5-16.9 [id number] 10:52:00* Test Item Value Reference Range Comments HEMATOCRIT (test code=HCT/ABG) % 37.5-50.7 POC IONIZED [id number] 10:52:00* Test Item Value Reference Range Comments POC IONIZED CALCIUM (test code=POCCA) MMOL/L 1.12-1.32 POC [id number] 10:52:00* Test Item Value Reference Range Comments POC GLUCOSE (test code=POCGLU) MG/DL 70-110 POC ARTERIAL BLOOD [id number] 10:52:00* Test Item Value Reference Range Comments POC ARTERIAL BLOOD GAS PH (test code=POCPHA) 7.404 7.35-7.45 POC ARTERIAL BLOOD GAS PCO2 (test code=RMSJFZ7J) 42.2 mmHg 35.0-45 POC TCO2 ARTERIAL (test code=POCTCO2) 27.7 POC ARTERIAL BLOOD GAS PO2 (test code=XMGZX4J) 168.0 mmHg 80-100.0 POC HCO3 ARTERIAL (test code=VRSHZK1S) 26.4 MMOL/L 22.0-26.0 POC BASE EXCESS (test code=POCBEA) 1.3 MMOL/L -4.0-4.0 POC O2 SATURATION (test code=POCO2S) 99.5 % 90-100 [id number] 10:52:00* Test Item Value Reference Range Comments SODIUM (test code=NA/ABG) 139 MEQ/L 134-147 [id number] 10:52:00* Test Item Value Reference Range Comments POTASSIUM (test code=K/ABG) 3.4 MEQ/L 3.4-5.0 [id number] 10:52:00* Test Item Value Reference Range Comments CHLORIDE (test code=CL/ABG) MEQ/L 100-108 CREATININE [id number] 10:52:00* Test Item Value Reference Range Comments CREATININE ABG (test code=CREAABG) mg/dL 0.8-1.3 [id number] 10:52:00* Test Item Value Reference Range Comments HEMOGLOBIN (test code=HGB/ABG) G/DL 12.5-16.9 [id number] 10:52:00* Test Item Value Reference Range Comments HEMATOCRIT (test code=HCT/ABG) % 37.5-50.7 POC IONIZED [id number] 10:52:00* Test Item Value Reference Range Comments POC IONIZED CALCIUM (test code=POCCA) MMOL/L 1.12-1.32 POC [id number] 10:52:00* Test Item Value Reference Range Comments POC GLUCOSE (test code=POCGLU) MG/DL 70-110 POC ARTERIAL BLOOD [id number] 10:52:00* Test Item Value Reference Range Comments POC ARTERIAL BLOOD GAS PH (test code=POCPHA) 7.404 7.35-7.45 POC ARTERIAL BLOOD GAS PCO2 (test code=INMYAJ0C) 42.2 mmHg 35.0-45 POC TCO2 ARTERIAL (test code=POCTCO2) 27.7 POC ARTERIAL BLOOD GAS PO2 (test code=XFHQI3D) 168.0 mmHg 80-100.0 POC HCO3 ARTERIAL (test code=WZELGB5Y) 26.4 MMOL/L 22.0-26.0 POC BASE EXCESS (test code=POCBEA) 1.3 MMOL/L -4.0-4.0 POC O2 SATURATION (test code=POCO2S) 99.5 % 90-100 [id number] 10:52:00* Test Item Value Reference Range Comments SODIUM (test code=NA/ABG) 139 MEQ/L 134-147 [id number] 10:52:00* Test Item Value Reference Range Comments POTASSIUM (test code=K/ABG) 3.4 MEQ/L 3.4-5.0 [id number] 10:52:00* Test Item Value Reference Range Comments CHLORIDE (test code=CL/ABG) MEQ/L 100-108 CREATININE [id number] 10:52:00* Test Item Value Reference Range Comments CREATININE ABG (test code=CREAABG) mg/dL 0.8-1.3 [id number] 10:52:00* Test Item Value Reference Range Comments HEMOGLOBIN (test code=HGB/ABG) G/DL 12.5-16.9 [id number] 10:52:00* Test Item Value Reference Range Comments HEMATOCRIT (test code=HCT/ABG) % 37.5-50.7 POC IONIZED [id number] 10:52:00* Test Item Value Reference Range Comments POC IONIZED CALCIUM (test code=POCCA) 1.14 MMOL/L 1.12-1.32 POC [id number] 10:52:00* Test Item Value Reference Range Comments POC GLUCOSE (test code=POCGLU) MG/DL 70-110 POC ARTERIAL BLOOD [id number] 10:52:00* Test Item Value Reference Range Comments POC ARTERIAL BLOOD GAS PH (test code=POCPHA) 7.404 7.35-7.45 POC ARTERIAL BLOOD GAS PCO2 (test code=DLIOFN2S) 42.2 mmHg 35.0-45 POC TCO2 ARTERIAL (test code=POCTCO2) 27.7 POC ARTERIAL BLOOD GAS PO2 (test code=HEOWY3B) 168.0 mmHg 80-100.0 POC HCO3 ARTERIAL (test code=HPWNLY5T) 26.4 MMOL/L 22.0-26.0 POC BASE EXCESS (test code=POCBEA) 1.3 MMOL/L -4.0-4.0 POC O2 SATURATION (test code=POCO2S) 99.5 % 90-100 [id number] 10:52:00* Test Item Value Reference Range Comments SODIUM (test code=NA/ABG) 139 MEQ/L 134-147 [id number] 10:52:00* Test Item Value Reference Range Comments POTASSIUM (test code=K/ABG) 3.4 MEQ/L 3.4-5.0 [id number] 10:52:00* Test Item Value Reference Range Comments CHLORIDE (test code=CL/ABG) MEQ/L 100-108 CREATININE [id number] 10:52:00* Test Item Value Reference Range Comments CREATININE ABG (test code=CREAABG) mg/dL 0.8-1.3 [id number] 10:52:00* Test Item Value Reference Range Comments HEMOGLOBIN (test code=HGB/ABG) G/DL 12.5-16.9 [id number] 10:52:00* Test Item Value Reference Range Comments HEMATOCRIT (test code=HCT/ABG) % 37.5-50.7 POC IONIZED [id number] 10:52:00* Test Item Value Reference Range Comments POC IONIZED CALCIUM (test code=POCCA) 1.14 MMOL/L 1.12-1.32 POC [id number] 10:52:00* Test Item Value Reference Range Comments POC GLUCOSE (test code=POCGLU) 156 MG/DL 70-110 POC ARTERIAL BLOOD [id number] 10:52:00* Test Item Value Reference Range Comments POC ARTERIAL BLOOD GAS PH (test code=POCPHA) 7.404 7.35-7.45 POC ARTERIAL BLOOD GAS PCO2 (test code=OAJAHD4I) 42.2 mmHg 35.0-45 POC TCO2 ARTERIAL (test code=POCTCO2) 27.7 POC ARTERIAL BLOOD GAS PO2 (test code=ZGNPW8Y) 168.0 mmHg 80-100.0 POC HCO3 ARTERIAL (test code=IFATJL9I) 26.4 MMOL/L 22.0-26.0 POC BASE EXCESS (test code=POCBEA) 1.3 MMOL/L -4.0-4.0 POC O2 SATURATION (test code=POCO2S) 99.5 % 90-100 [id number] 10:52:00* Test Item Value Reference Range Comments SODIUM (test code=NA/ABG) 139 MEQ/L 134-147 [id number] 10:52:00* Test Item Value Reference Range Comments POTASSIUM (test code=K/ABG) 3.4 MEQ/L 3.4-5.0 [id number] 10:52:00* Test Item Value Reference Range Comments CHLORIDE (test code=CL/ABG) MEQ/L 100-108 CREATININE [id number] 10:52:00* Test Item Value Reference Range Comments CREATININE ABG (test code=CREAABG) mg/dL 0.8-1.3 [id number] 10:52:00* Test Item Value Reference Range Comments HEMOGLOBIN (test code=HGB/ABG) G/DL 12.5-16.9 [id number] 10:52:00* Test Item Value Reference Range Comments HEMATOCRIT (test code=HCT/ABG) 47 % 37.5-50.7 POC IONIZED [id number] 10:52:00* Test Item Value Reference Range Comments POC IONIZED CALCIUM (test code=POCCA) 1.14 MMOL/L 1.12-1.32 POC [id number] 10:52:00* Test Item Value Reference Range Comments POC GLUCOSE (test code=POCGLU) 156 MG/DL 70-110 POC ARTERIAL BLOOD [id number] 10:52:00* Test Item Value Reference Range Comments POC ARTERIAL BLOOD GAS PH (test code=POCPHA) 7.404 7.35-7.45 POC ARTERIAL BLOOD GAS PCO2 (test code=BQSRCC5U) 42.2 mmHg 35.0-45 POC TCO2 ARTERIAL (test code=POCTCO2) 27.7 POC ARTERIAL BLOOD GAS PO2 (test code=VWXPY2P) 168.0 mmHg 80-100.0 POC HCO3 ARTERIAL (test code=JNLBGI8N) 26.4 MMOL/L 22.0-26.0 POC BASE EXCESS (test code=POCBEA) 1.3 MMOL/L -4.0-4.0 POC O2 SATURATION (test code=POCO2S) 99.5 % 90-100 [id number] 10:52:00* Test Item Value Reference Range Comments SODIUM (test code=NA/ABG) 139 MEQ/L 134-147 [id number] 10:52:00* Test Item Value Reference Range Comments POTASSIUM (test code=K/ABG) 3.4 MEQ/L 3.4-5.0 [id number] 10:52:00* Test Item Value Reference Range Comments CHLORIDE (test code=CL/ABG) MEQ/L 100-108 CREATININE [id number] 10:52:00* Test Item Value Reference Range Comments CREATININE ABG (test code=CREAABG) mg/dL 0.8-1.3 [id number] 10:52:00* Test Item Value Reference Range Comments HEMOGLOBIN (test code=HGB/ABG) 16.0 G/DL 12.5-16.9 [id number] 10:52:00* Test Item Value Reference Range Comments HEMATOCRIT (test code=HCT/ABG) 47 % 37.5-50.7 POC IONIZED [id number] 10:52:00* Test Item Value Reference Range Comments POC IONIZED CALCIUM (test code=POCCA) 1.14 MMOL/L 1.12-1.32 POC [id number] 10:52:00* Test Item Value Reference Range Comments POC GLUCOSE (test code=POCGLU) 156 MG/DL 70-110 POC ARTERIAL BLOOD [id number] 10:52:00* Test Item Value Reference Range Comments POC ARTERIAL BLOOD GAS PH (test code=POCPHA) 7.404 7.35-7.45 POC ARTERIAL BLOOD GAS PCO2 (test code=LIREVU1I) 42.2 mmHg 35.0-45 POC TCO2 ARTERIAL (test code=POCTCO2) 27.7 POC ARTERIAL BLOOD GAS PO2 (test code=SAVTC0M) 168.0 mmHg 80-100.0 POC HCO3 ARTERIAL (test code=LFKPDW3X) 26.4 MMOL/L 22.0-26.0 POC BASE EXCESS (test code=POCBEA) 1.3 MMOL/L -4.0-4.0 POC O2 SATURATION (test code=POCO2S) 99.5 % 90-100 [id number] 10:52:00* Test Item Value Reference Range Comments SODIUM (test code=NA/ABG) 139 MEQ/L 134-147 [id number] 10:52:00* Test Item Value Reference Range Comments POTASSIUM (test code=K/ABG) 3.4 MEQ/L 3.4-5.0 [id number] 10:52:00* Test Item Value Reference Range Comments CHLORIDE (test code=CL/ABG) 103 MEQ/L 100-108 CREATININE [id number] 10:52:00* Test Item Value Reference Range Comments CREATININE ABG (test code=CREAABG) mg/dL 0.8-1.3 [id number] 10:52:00* Test Item Value Reference Range Comments HEMOGLOBIN (test code=HGB/ABG) 16.0 G/DL 12.5-16.9 [id number] 10:52:00* Test Item Value Reference Range Comments HEMATOCRIT (test code=HCT/ABG) 47 % 37.5-50.7 POC IONIZED [id number] 10:52:00* Test Item Value Reference Range Comments POC IONIZED CALCIUM (test code=POCCA) 1.14 MMOL/L 1.12-1.32 POC [id number] 10:52:00* Test Item Value Reference Range Comments POC GLUCOSE (test code=POCGLU) 156 MG/DL 70-110 POC ARTERIAL BLOOD [id number] 10:52:00* Test Item Value Reference Range Comments POC ARTERIAL BLOOD GAS PH (test code=POCPHA) 7.404 7.35-7.45 POC ARTERIAL BLOOD GAS PCO2 (test code=VIDQLL0I) 42.2 mmHg 35.0-45 POC TCO2 ARTERIAL (test code=POCTCO2) 27.7 POC ARTERIAL BLOOD GAS PO2 (test code=DZDFD2U) 168.0 mmHg 80-100.0 POC HCO3 ARTERIAL (test code=OBPVVU5X) 26.4 MMOL/L 22.0-26.0 POC BASE EXCESS (test code=POCBEA) 1.3 MMOL/L -4.0-4.0 POC O2 SATURATION (test code=POCO2S) 99.5 % 90-100 [id number] 10:52:00* Test Item Value Reference Range Comments SODIUM (test code=NA/ABG) 139 MEQ/L 134-147 [id number] 10:52:00* Test Item Value Reference Range Comments POTASSIUM (test code=K/ABG) 3.4 MEQ/L 3.4-5.0 [id number] 10:52:00* Test Item Value Reference Range Comments CHLORIDE (test code=CL/ABG) 103 MEQ/L 100-108 CREATININE [id number] 10:52:00* Test Item Value Reference Range Comments CREATININE ABG (test code=CREAABG) 0.6 mg/dL 0.8-1.3 [id number] 10:52:00* Test Item Value Reference Range Comments HEMOGLOBIN (test code=HGB/ABG) 16.0 G/DL 12.5-16.9 [id number] 10:52:00* Test Item Value Reference Range Comments HEMATOCRIT (test code=HCT/ABG) 47 % 37.5-50.7 POC IONIZED [id number] 10:52:00* Test Item Value Reference Range Comments POC IONIZED CALCIUM (test code=POCCA) 1.14 MMOL/L 1.12-1.32 POC [id number] 10:52:00* Test Item Value Reference Range Comments POC GLUCOSE (test code=POCGLU) 156 MG/DL 70-110 - DUP EXTRACRANIAL [id number] 09:25:00 Name: MERCEDEZ KOWALSKI Samara [facility] : 1955 Age/S: 63 / M [address] [place] [address] Blvd Unit #: [id number] Loc: [facility] [address] Phys: Pauly Bennett MD Acct: [id number] Dis Date: Status: ADM IN PHONE #: [phone] Exam Date: 07/31/2018 09 FAX #: [phone] Reason: Cardiac Surgery Pre Op EXAMS: CPT CODE: [id number] DUP EXTRACRANIAL JODEE [id number] STUDY: - DUP EXTRACRANIAL JODEE 07/31/2018 4:53 PM Ordering Physician: Pauly Bennett MD Patient Name: MERCEDEZ KOWALSKI MR: [id number] : 1955; Age: 63 years y/o Male Clinical Indication: Cardiac Surgery Pre Op Comparison: None TECHNIQUE: Fletcher-scale, color Doppler and spectral Doppler of the carotid arteries was performed. Any reported ICA stenoses indirectly reference the distal internal carotid diameter as the denominator for the stenosis measurement, utilizing consensus panel criteria. FINDINGS: RIGHT CAROTID Grayscale images:No significant plaque ICA PSV: 66 cm/sec CCA PSV: 47.4 cm/sec ICA/CCA PSV RATIO:1.4 Vertebral flow: Antegrade. External carotid: Patent. LEFT CAROTID SYSTEM Grayscale images: No significant plaque ICA PSV: 55.9 cm/sec CCA PSV: 59.4 cm/sec ICA/CCA PSV RATIO:0.9 Vertebral flow: Antegrade. Manager Rn Case al carotid: Patent. IMPRESSION: RIGHT: ICA stenosis <50% by velocity criteria. LEFT: ICA stenosis <50% by velocity criteria. PAGE 1 Signed Report (CONTINUED) Name: MERCEDEZ KOWALSKI : 1955 Age/S: 63 / M [address] Unit #: [id number] Loc: [facility] [address] Phys: Pauly Bennett MD Acct: [id number] Dis Date: Status: ADM IN PHONE #: [phone] Exam Date: 07/31/2018902 FAX #: [phone] Reason: Cardiac Surgery Pre Op EXAMS: CPT CODE: [id number] DUP EXTRACRANIAL JODEE [address] <Continued> Consensus panel Doppler US criteria for diagnosis of ICA stenosis: Stenosis (%) ICA PSV (cm/sec) ICA/CCA ratio ------ <50 <125 <2.0 50-69 125-230 2.0-4.0 >70 but less than >230 >4.0 near occlusion Near occlusion High, low, or Variable undetectable SL: [id number] at 0925 Reported and signed by: Brayden Cat D.O. CC: Pauly Bennett MD; Payal Cowart M.D.; Jaren Miranda MD; Demetrius Ying DO Technologist: Aishwarya Marley RDMS(BR)(AB) Trnscb Date/Time: 07/31/2018 (924) [email or web address] Orig Print D/T: S: 07/31/2018 (0928) Probe: PAGE 2 Signed Report - DUP VEIN [id number] 09:20:00 Name: MERCEDEZ KOWALSKI [facility] : 1955 Age/S: 63 / M [address] [place] [address] Blvd Unit #: [id number] Loc: [facility] [address] Phys: Ab carolina Bennett MD Acct: [id number] Di s Date: Status: ADM IN PHONE #: [phone] Exam Date: 07/31/2018902 FAX #: [phone] Reason: Cardiac Surgery Pre Op EXAMS: CPT CODE: [id number] DUP VEIN JODEE [address] Bilateral Lower extremity vein mapping: HISTORY: Preoperative evaluation for CABG. FINDINGS: Real-time evaluation was used to measure the great saphenous vein in each leg. RIGHT great saphenous measurements: Upper thigh: 7.2 mm. Mid thigh: 4.5 mm. Lower thigh: 4.7 mm. Upper le.9 mm. Mid le.6 mm. Lower le.6 mm. LEFT great saphenous measurements: Upper thigh: 7.4 mm. Mid thigh: 5.5 mm. Lower thigh: 5.6 mm. Upper le.3 mm. Mid le.2 mm. Lower le.8 mm. at 0920 Reported and signed by: Brayden Cat D.O. CC: Pauly Bennett MD; Payal Cowart M.D.; Jaren Miranda MD; Demetrius Ying DO Technologist: Aishwarya Marley RDMS(BR)(AB) Trnscb Date/Time: 07/31/2018 (919) [email or web address] Orig Print D/T: S: 07/31/2018 (922) Probe: PAGE 1 Signed Report PROTHROMBIN TIME 2018-07-31 05:19:00* Test Item Value Reference Range Comments PROTHROMBIN TIME PATIENT (test code=PTP) 14.6 SECONDS 9.3-12.9 INTERNATIONAL NORMAL RATIO (test code=INR) 1.3 0.8-1.2 TARGET INR BY INDICATION Indication INR1. Prophylaxis of venous thrombosis 2.0 - 3.0 (orthopedic surgery), Prophylaxis of venous thrombosis (other than high-risk surgery), Treatment of Deep Vein Thrombosis/Pulmonary Embolism, Prevention of systemic embolism - Tissue heart valves, Acute Myocardial Infarction (to prevent systemic embolism), Valvular heart disease, Atrial Fibrillation, Bileaflet mechanical valve in aortic position.2. Mechanical prosthetic valves (high risk), 2.5 - 3.5 Presence of Lupus Anticoagulant or Antiphospholipid Antibodies, Prevention of systemic embolism - Acute Myocardial Infarction (to prevent recurrent infarct). THROMBOPLASTIN TIME [id number] 05:19:00* Test Item Value Reference Range Comments THROMBOPLASTIN TIME PARTIAL (test code=PTT) 30.2 Seconds 25.0-39.5 Therapeutic Range: 61.8-83.8 Sec Effective 06/13/2013 BASIC METABOLIC [id number] 04:56:00* Test Item Value Reference Range Comments SODIUM (test code=NA) 139 mEq/L 134-147 POTASSIUM (test code=K) 3.3 mEq/L 3.4-5.0 CHLORIDE (test code=CL) 106 mEq/L 100-108 CARBON DIOXIDE (test code=CO2) 27 mEq/L 21-33 ANION GAP (test code=GAP) 9 0-20 GLUCOSE (test code=GLU) 123 mg/dL 70-110 BLOOD UREA NITROGEN (test code=BUN) 8 mg/dL 7-18 GLOMERULAR FILTRATION RATE (test code=GFR) 97.6 80-90 Units of measure=ml/min/1.73 m2 CREATININE (test code=CREAT) 0.8 mg/dL 0.6-1.3 CALCIUM (test code=CA) 8.3 mg/dL 8.0-10.5 HEPATIC FUNCTION [id number] 04:56:00* Test Item Value Reference Range Comments TOTAL PROTEIN (test code=PROT) 6.6 g/dL 6.4-8.2 ALBUMIN (test code=ALB) 3.30 g/dL 3.4-5.0 BILIRUBIN TOTAL (test code=BILT) 1.10 mg/dL 0.0-1.0 BILIRUBIN DIRECT (test code=BILD) 0.30 MG/DL 0.0-0.30 BILIRUBIN INDIRECT (test code=BILIND) 0.80 MG/DL SGOT/AST (test code=AST) 16 IUnit/L 15-37 SGPT/ALT (test code=ALT) 23 IUnit/L 15-65 ALKALINE PHOSPHATASE TOTAL (test code=ALKP) 65 IUnit/L 20-125 CBC W/AUTO [id number] 04:33:00* Test Item Value Reference Range Comments WHITE BLOOD CELL (test code=WBC) 8.96 x10 3/uL 4.5-11.0 RED BLOOD CELL (test code=RBC) 5.15 x10 6/uL 4.00-5.60 HEMOGLOBIN (test code=HGB) 15.5 g/dL 12.5-16.9 HEMATOCRIT (test code=HCT) 47.0 % 37.5-50.7 MEAN CELL VOLUME (test code=MCV) 91.3 fL 81.0-99.0 MEAN CELL HGB (test code=MCH) 30.1 pg 27.0-33.0 MEAN CELL HGB CONCETRATION (test code=MCHC) 33.0 g/dL 33.0-37.0 RED CELL DISTRIBUTION WIDTH CV (test code=RDW) 12.6 % 11.5-14.5 RED CELL DISTRIBUTION WIDTH SD (test code=RDW-SD) 42.3 fL 37.0-54.0 PLATELET COUNT (test code=PLT) 217 x10 3/uL 150-400 MEAN PLATELET VOLUME (test code=MPV) 10.4 fL 7.0-9.0 NEUTROPHIL % (test code=NT%) 55.9 % 56.0-77.0 IMMATURE GRANULOCYTE % (test code=IG%) 0.3 % 0.0-2.0 LYMPHOCYTE % (test code=LY%) 33.4 % 14.0-32.0 MONOCYTE % (test code=MO%) 7.8 % 4.8-9.0 EOSINOPHIL % (test code=EO%) 2.3 % 0.3-3.7 BASOPHIL % (test code=BA%) 0.3 % 0.0-2.0 NUCLEATED RBC % (test code=NRBC%) 0.0 % 0-0 NEUTROPHIL # (test code=NT#) 5.00 x10 3/uL 2.0-7.6 IMMATURE GRANULOCYTE # (test code=IG#) 0.03 x10 3/uL 0.00-0.03 LYMPHOCYTE # (test code=LY#) 2.99 x10 3/uL 1.0-3.8 MONOCYTE # (test code=MO#) 0.70 x10 3/uL 0.1-0.8 EOSINOPHIL # (test code=EO#) 0.21 x10 3/uL 0.0-0.2 BASOPHIL # (test code=BA#) 0.03 x10 3/uL 0.0-0.2 NUCLEATED RBC # (test code=NRBC#) 0.00 x10 3/uL 0.0-0.1 MANUAL DIFF REQUIRED (test code=MDIFF) NO - CT CHEST W/O [id number] 21:56:00 Name: MERCEDEZ KOWALSKI [facility] [place] : 1955 Age/S: 63 / M [address] [place] [address] Unit #: [id number] Loc: [facility] [address] Phys: Pauly Bennett MD Acct: [id number] Dis Date: Status: ADM IN PHONE #: [phone] Exam Date: 07/30/2018 0654 FAX #: [phone] Reason: Cardiac Surgery Pre Op EXAMS: CPT CODE: [id number] CT CHEST W/O CONTRAST 26948 PROCEDURE: CT CHEST WITHOUT CONTRAST INDICATION: 63 years Male, Cardiac Surgery Pre Op. COMPARISON: Chest x-ray 07/21/2018 TECHNIQUE: Helical noncontrast images are obtained from the lung apices to the lung bases. Axial, sagittal and coronal reconstructions are available. IV contrast: None. DOSE: CT imaging performed at this location utilizes radiation dose optimization technique which includes one or more of the followin) Automated exposure control; 2) Adjustment of the mA and/or kV according to patient's size; 3) Use of iterative reconstruction techniques. DLP (mGy- cm): 593 FINDINGS: LOWER NECK: Limited visualization. No abnormality. MEDIASTINUM: Heart appears normal with trace pericardial effusion. Coronary artery calcifications. No path ologic adenopathy by size criteria. PULMONARY PARENCHYMA: Sm all bilateral pleural effusions with bibasilar compressive atelectasis luciano guevara infiltrate. No pneumothorax. Airways are patent without bronchiectasi s. UPPER ABDOMEN: Limited visualization. No abnormality. MUSCULOSKELETAL: No acute osseous abnormalities or destructive bony l esions. Vertebral body height are maintained. OTHER: None. IMPRESSION: Small bilateral pleural effusions with bibasilar co mpressive atelectasis versus infiltrate. Trace pericardial effusion SL: SUDHEER at 2156 Reported and signed by: Ruben Monsivais M.D. P AGE 1 Signed Report (CONTINUED) Name : MERCEDEZ KOWALSKI [facility] [place] : [birth year] Age/S: 63 / M [address] [place] [address] Unit #: [id number] Loc: [facility] [place] [address] Phys: Toño Bennett MD Acct: [id number] Dis Date : Status: ADM IN PHONE #: Exam Date: 07/30/2018 0654 FAX #: [phone] Reason: Cardiac Surgery Pre Op EXAMS: CPT CODE: [id number] CT CHEST W/O CONTRAST 97446 <Continued> CC: Pauly Bennett MD; Payal Cowart M.D.; Jaren Miranda MD; Demetrius Ying DO Technologist:Shantanu Lambert, RT(R) CTDI: DLP: Trnscb Date/Time: 07/30/2018 (2156) [email or web address] Orig Print D/T: S: 07/31/2018 (0655) CTDI: DLP: PAGE 2 Signed Report [id number] 20:17:00* Test Item Value Reference Range Comments GLUBED (test code=GLUBED) 203 MG/DL 70-110 Performed by certified airline radio operator at [facility] URINALYSIS [id number] 18:40:00* Test Item Value Reference Range Comments UA COLOR (test code=COLU) CECILIA YEL/STRAW UA APPEARANCE (test code=APPU) SL CLOUDY CLEAR UA GLUCOSE DIPSTICK (test code=DGLUU) 3+ NEGATIVE UA BILIRUBIN DIPSTICK (test code=BILU) NEGATIVE NEGATIVE UA KETONE DIPSTICK (test code=KETU) TRACE NEGATIVE UA SPECIFIC GRAVITY (test code=SGU) 1.021 1.005-1.030 UA BLOOD DIPSTICK (test code=RADHA) NEGATIVE NEGATIVE UA PH DIPSTICK (test code=MIGUEL) 6.0 5.0-7.0 UA PROTEIN DIPSTICK (test code=PROU) 1+ NEGATIVE UA UROBILINIOGEN DIPSTICK (test code=URO) 4.0 mg/dL 0.2-1.0 UA NITRITE DIPSTICK (test code=ROGELIO) POSITIVE NEGATIVE UA LEUKOCYTE ESTERASE DIPSTICK (test code=LEUU) TRACE NEGATIVE UA WBC (test code=WBCU) >50 WBC/HPF 0-3 UA RBC (test code=RBCU) 0-3 RBC/HPF 0-3 UA BACTERIA (test code=BACU) 1+ /HPF NONE SEEN UA SQUAMOUS CELLS (test code=SQU) NONE SEEN /HPF NONE SEEN UA MUCUS (test code=MUCU) 2+ /LPF NONE SEEN PROTHROMBIN [id number] 18:30:00* Test Item Value Reference Range Comments PROTHROMBIN TIME PATIENT (test code=PTP) 15.3 SECONDS 9.3-12.9 INTERNATIONAL NORMAL RATIO (test code=INR) 1.4 0.8-1.2 TARGET INR BY INDICATION Indication INR1. Prophylaxis of venous thrombosis 2.0 - 3.0 (orthopedic surgery), Prophylaxis of venous thrombosis (other than high-risk surgery), Treatment of Deep Vein Thrombosis/Pulmonary Embolism, Prevention of systemic embolism - Tissue heart valves, Acute Myocardial Infarction (to prevent systemic embolism), Valvular heart disease, Atrial Fibrillation, Bileaflet mechanical valve in aortic position.2. Mechanical prosthetic valves (high risk), 2.5 - 3.5 Presence of Lupus Anticoagulant or Antiphospholipid Antibodies, Prevention of systemic embolism - Acute Myocardial Infarction (to prevent recurrent infarct). THROMBOPLASTIN TIME [id number] 18:30:00* Test Item Value Reference Range Comments THROMBOPLASTIN TIME PARTIAL (test code=PTT) 30.9 Seconds 25.0-39.5 Therapeutic Range: 61.8-83.8 Sec Effective 06/13/2013 COMPREHENSIVE METABOLIC [id number] 18:29:00* Test Item Value Reference Range Comments SODIUM (test code=NA) 137 mEq/L 134-147 POTASSIUM (test code=K) 3.4 mEq/L 3.4-5.0 CHLORIDE (test code=CL) 105 mEq/L 100-108 CARBON DIOXIDE (test code=CO2) 27 mEq/L 21-33 ANION GAP (test code=GAP) 8 0-20 GLUCOSE (test code=GLU) 189 mg/dL 70-110 BLOOD UREA NITROGEN (test code=BUN) 8 mg/dL 7-18 GLOMERULAR FILTRATION RATE (test code=GFR) 97.6 80-90 Units of measure=ml/min/1.73 m2 CREATININE (test code=CREAT) 0.8 mg/dL 0.6-1.3 TOTAL PROTEIN (test code=PROT) 6.8 g/dL 6.4-8.2 ALBUMIN (test code=ALB) 3.30 g/dL 3.4-5.0 CALCIUM (test code=CA) 8.2 mg/dL 8.0-10.5 BILIRUBIN TOTAL (test code=BILT) 0.80 mg/dL 0.0-1.0 SGOT/AST (test code=AST) 15 IUnit/L 15-37 SGPT/ALT (test code=ALT) 26 IUnit/L 15-65 ALKALINE PHOSPHATASE TOTAL (test code=ALKP) 72 IUnit/L 20-125 B-TYPE NATRIURETIC [id number] 18:14:00* Test Item Value Reference Range Comments B-TYPE NATRIURETIC PEPTIDE (test code=BNP) 255.0 PG/ML 0-100 HGBA1C%[id number] 17:48:00* Test Item Value Reference Range Comments HGBA1C% (test code=HGBA1C%) 7.7 %A1C 4.8-6.0 CBC W/AUTO [id number] 17:20:00* Test Item Value Reference Range Comments WHITE BLOOD CELL (test code=WBC) 9.09 x10 3/uL 4.5-11.0 RED BLOOD CELL (test code=RBC) 5.15 x10 6/uL 4.00-5.60 HEMOGLOBIN (test code=HGB) 15.5 g/dL 12.5-16.9 HEMATOCRIT (test code=HCT) 47.4 % 37.5-50.7 MEAN CELL VOLUME (test code=MCV) 92.0 fL 81.0-99.0 MEAN CELL HGB (test code=MCH) 30.1 pg 27.0-33.0 MEAN CELL HGB CONCETRATION (test code=MCHC) 32.7 g/dL 33.0-37.0 RED CELL DISTRIBUTION WIDTH CV (test code=RDW) 12.7 % 11.5-14.5 RED CELL DISTRIBUTION WIDTH SD (test code=RDW-SD) 42.9 fL 37.0-54.0 PLATELET COUNT (test code=PLT) 250 x10 3/uL 150-400 MEAN PLATELET VOLUME (test code=MPV) 11.7 fL 7.0-9.0 NEUTROPHIL % (test code=NT%) 72.0 % 56.0-77.0 IMMATURE GRANULOCYTE % (test code=IG%) 0.3 % 0.0-2.0 LYMPHOCYTE % (test code=LY%) 19.8 % 14.0-32.0 MONOCYTE % (test code=MO%) 6.7 % 4.8-9.0 EOSINOPHIL % (test code=EO%) 1.0 % 0.3-3.7 BASOPHIL % (test code=BA%) 0.2 % 0.0-2.0 NUCLEATED RBC % (test code=NRBC%) 0.0 % 0-0 NEUTROPHIL # (test code=NT#) 6.54 x10 3/uL 2.0-7.6 IMMATURE GRANULOCYTE # (test code=IG#) 0.03 x10 3/uL 0.00-0.03 LYMPHOCYTE # (test code=LY#) 1.80 x10 3/uL 1.0-3.8 MONOCYTE # (test code=MO#) 0.61 x10 3/uL 0.1-0.8 EOSINOPHIL # (test code=EO#) 0.09 x10 3/uL 0.0-0.2 BASOPHIL # (test code=BA#) 0.02 x10 3/uL 0.0-0.2 NUCLEATED RBC # (test code=NRBC#) 0.00 x10 3/uL 0.0-0.1 MANUAL DIFF REQUIRED (test code=MDIFF) NO [id number] 19:01:00* Test Item Value Reference Range Comments GLUBED (test code=GLUBED) 220 mg/dL 74-106 Performed by certified airline radio operator at [facility] [id number] 14:40:00* Test Item Value Reference Range Comments GLUBED (test code=GLUBED) 132 mg/dL 74-106 Performed by certified airline radio operator at [facility] [id number] 11:19:00* Test Item Value Reference Range Comments GLUBED (test code=GLUBED) 143 mg/dL 74-106 [facility] COMPREHENSIVE METABOLIC [id number] 17:17:00* Test Item Value Reference Range Comments SODIUM (test code=NA) 140 mmol/L 136-145 POTASSIUM (test code=K) 3.7 mmol/L 3.5-5.1 CHLORIDE (test code=CL) 107.0 mmol/L 98-107 CARBON DIOXIDE (test code=CO2) 24.0 mmol/L 21-32 ANION GAP (test code=GAP) 12.7 10-20 GLUCOSE (test code=GLU) 145 mg/dL 74-106 BLOOD UREA NITROGEN (test code=BUN) 8 mg/dL 7-18 GLOMERULAR FILTRATION RATE (test code=GFR) > 60 mL/min >=60 Estimated GFR by using Modified MDRD formula.Chronic kidney disease is defined as either kidney damageor GFR <60 mL/min/1.73 m2 for >3 months. CREATININE (test code=CREAT) 0.90 mg/dL 0.7-1.3 BUN/CREATININE RATIO (test code=BUN/CREA) 8.9 10-20 TOTAL PROTEIN (test code=PROT) 7.3 gram/dL 6.4-8.2 ALBUMIN (test code=ALB) 3.5 g/dL 3.4-5.0 GLOBULIN (test code=GLOB) 3.8 gram/dL 2.7-4.2 ALBUMIN/GLOBULIN RATIO (test code=A/G) 0.9 0.75-1.50 CALCIUM (test code=CA) 7.9 mg/dL 8.5-10.1 BILIRUBIN TOTAL (test code=BILT) 0.90 mg/dL 0.0-1.0 SGOT/AST (test code=AST) 20 IUnit/L 15-37 SGPT/ALT (test code=ALT) 26 IUnit/L 12-78 ALKALINE PHOSPHATASE TOTAL (test code=ALKP) 66 IUnit/L 45-117 Note change in reference range due to change in reagent. THYROID STIMULATING [id number] 17:17:00* Test Item Value Reference Range Comments THYROID STIMULATING HORMONE (test code=TSH) 1.270 uIU/mL 0.36-3.74 TSH REFERENCE RANGES: EUTHYROID: 0.35 - 4.3 mIU/mL HYPO : > 5.5 mIU/mL HYPER : < 0.35 mIU/mL COMPREHENSIVE METABOLIC [id number] 16:51:00* Test Item Value Reference Range Comments SODIUM (test code=NA) 140 mmol/L 136-145 POTASSIUM (test code=K) 3.7 mmol/L 3.5-5.1 CHLORIDE (test code=CL) 107.0 mmol/L 98-107 CARBON DIOXIDE (test code=CO2) 24.0 mmol/L 21-32 ANION GAP (test code=GAP) 12.7 10-20 GLUCOSE (test code=GLU) 145 mg/dL 74-106 BLOOD UREA NITROGEN (test code=BUN) 8 mg/dL 7-18 GLOMERULAR FILTRATION RATE (test code=GFR) > 60 mL/min >=60 Estimated GFR by using Modified MDRD formula.Chronic kidney disease is defined as either kidney damageor GFR <60 mL/min/1.73 m2 for >3 months. CREATININE (test code=CREAT) 0.90 mg/dL 0.7-1.3 BUN/CREATININE RATIO (test code=BUN/CREA) 8.9 10-20 TOTAL PROTEIN (test code=PROT) 7.3 gram/dL 6.4-8.2 ALBUMIN (test code=ALB) 3.5 g/dL 3.4-5.0 GLOBULIN (test code=GLOB) 3.8 gram/dL 2.7-4.2 ALBUMIN/GLOBULIN RATIO (test code=A/G) 0.9 0.75-1.50 CALCIUM (test code=CA) 7.9 mg/dL 8.5-10.1 BILIRUBIN TOTAL (test code=BILT) 0.90 mg/dL 0.0-1.0 SGOT/AST (test code=AST) 20 IUnit/L 15-37 SGPT/ALT (test code=ALT) 26 IUnit/L 12-78 ALKALINE PHOSPHATASE TOTAL (test code=ALKP) 66 IUnit/L 45-117 Note change in reference range due to change in reagent. THYROID STIMULATING [id number] 16:51:00* Test Item Value Reference Range Comments THYROID STIMULATING HORMONE (test code=TSH) uIU/mL 0.36-3.74 COMPREHENSIVE METABOLIC [id number] 16:09:00* Test Item Value Reference Range Comments SODIUM (test code=NA) 140 mmol/L 136-145 POTASSIUM (test code=K) 3.7 mmol/L 3.5-5.1 CHLORIDE (test code=CL) 107.0 mmol/L 98-107 CARBON DIOXIDE (test code=CO2) 24.0 mmol/L 21-32 ANION GAP (test code=GAP) 12.7 10-20 GLUCOSE (test code=GLU) 145 mg/dL 74-106 BLOOD UREA NITROGEN (test code=BUN) 8 mg/dL 7-18 GLOMERULAR FILTRATION RATE (test code=GFR) mL/min >=60 CREATININE (test code=CREAT) mg/dL 0.7-1.3 BUN/CREATININE RATIO (test code=BUN/CREA) 10-20 TOTAL PROTEIN (test code=PROT) gram/dL 6.4-8.2 ALBUMIN (test code=ALB) 3.5 g/dL 3.4-5.0 GLOBULIN (test code=GLOB) gram/dL 2.7-4.2 ALBUMIN/GLOBULIN RATIO (test code=A/G) 0.75-1.50 CALCIUM (test code=CA) 7.9 mg/dL 8.5-10.1 BILIRUBIN TOTAL (test code=BILT) mg/dL 0.0-1.0 SGOT/AST (test code=AST) IUnit/L 15-37 SGPT/ALT (test code=ALT) IUnit/L 12-78 ALKALINE PHOSPHATASE TOTAL (test code=ALKP) IUnit/L 45-117 THYROID STIMULATING [id number] 16:09:00* Test Item Value Reference Range Comments THYROID STIMULATING HORMONE (test code=TSH) uIU/mL 0.36-3.74 COMPREHENSIVE METABOLIC [id number] 15:48:00* Test Item Value Reference Range Comments SODIUM (test code=NA) 140 mmol/L 136-145 POTASSIUM (test code=K) 3.7 mmol/L 3.5-5.1 CHLORIDE (test code=CL) 107.0 mmol/L 98-107 CARBON DIOXIDE (test code=CO2) mmol/L 21-32 ANION GAP (test code=GAP) 10-20 GLUCOSE (test code=GLU) mg/dL 74-106 BLOOD UREA NITROGEN (test code=BUN) mg/dL 7-18 GLOMERULAR FILTRATION RATE (test code=GFR) mL/min >=60 CREATININE (test code=CREAT) mg/dL 0.7-1.3 BUN/CREATININE RATIO (test code=BUN/CREA) 10-20 TOTAL PROTEIN (test code=PROT) gram/dL 6.4-8.2 ALBUMIN (test code=ALB) g/dL 3.4-5.0 GLOBULIN (test code=GLOB) gram/dL 2.7-4.2 ALBUMIN/GLOBULIN RATIO (test code=A/G) 0.75-1.50 CALCIUM (test code=CA) mg/dL 8.5-10.1 BILIRUBIN TOTAL (test code=BILT) mg/dL 0.0-1.0 SGOT/AST (test code=AST) IUnit/L 15-37 SGPT/ALT (test code=ALT) IUnit/L 12-78 ALKALINE PHOSPHATASE TOTAL (test code=ALKP) IUnit/L 45-117 THYROID STIMULATING [id number] 15:48:00* Test Item Value Reference Range Comments THYROID STIMULATING HORMONE (test code=TSH) uIU/mL 0.36-3.74 CBC W/AUTO [id number] 15:33:00* Test Item Value Reference Range Comments WHITE BLOOD CELL (test code=WBC) 8.5 K/mm3 4.5-12.5 RED BLOOD CELL (test code=RBC) 5.45 mill/mm3 4.0-5.8 HEMOGLOBIN (test code=HGB) 16.4 gram/dL 13.0-17.5 HEMATOCRIT (test code=HCT) 50.2 % 42.0-52.0 MEAN CELL VOLUME (test code=MCV) 92.1 fL 80-98 MEAN CELL HGB (test code=MCH) 30.1 picogram 27.0-33.0 MEAN CELL HGB CONCETRATION (test code=MCHC) 32.7 gram/dL 33.0-36.0 RED CELL DISTRIBUTION WIDTH (test code=RDW) 12.9 % 11.6-16.2 RED CELL DISTRIBUTION WIDTH SD (test code=RDW-SD) 43.4 fL 37.0-51.0 PLATELET COUNT (test code=PLT) 221 K/mm3 150-450 MEAN PLATELET VOLUME (test code=MPV) 10.8 fL 6.7-11.0 NEUTROPHIL % (test code=NT%) 66.1 % 39.0-69.0 IMMATURE GRANULOCYTE % (test code=IG%) 0.5 % 0.0-5.0 LYMPHOCYTE % (test code=LY%) 24.9 % 25.0-55.0 MONOCYTE % (test code=MO%) 6.8 % 0.0-10.0 EOSINOPHIL % (test code=EO%) 1.3 % 0.0-5.0 BASOPHIL % (test code=BA%) 0.4 % 0.0-1.0 NUCLEATED RBC % (test code=NRBC%) 0.0 % 0-0 NEUTROPHIL # (test code=NT#) 5.65 K/mm3 1.8-7.7 IMMATURE GRANULOCYTE # (test code=IG#) 0.04 x10 3/uL 0-0.03 LYMPHOCYTE # (test code=LY#) 2.13 K/mm3 1.0-5.0 MONOCYTE # (test code=MO#) 0.58 K/mm3 0-0.8 EOSINOPHIL # (test code=EO#) 0.11 K/mm3 0.0-0.5 BASOPHIL # (test code=BA#) 0.03 K/mm3 0.0-0.2 NUCLEATED RBC # (test code=NRBC#) 0.00 K/mm3 0.0-0.1 MANUAL DIFF REQUIRED (test code=MDIFF) NO [id number] 15:29:00* Test Item Value Reference Range Comments GLYCOSYLATED HEMOGLOBIN (HA1C) (test code=GLYHGB) 8.1 % HbA1 4.8-6.0 ESTIMATED AVERAGE GLUCOSE (test code=EAG) 186 MG/DL - XR CHEST 2 [id number] 14:34:00 FAX: Payal Hudson [phone] [place]: St: PRE FAX: Jaren Flores MD [phone] Name: MERCEDEZ KOWALSKI [facility] : 1955 Age/S: 63/M [address] [facility] Unit #: [id number] Loc: [place] [address] Phys: Payal Cowart MD Acct: [id number] Dis Date: Status: PRE [facility] [place] PHONE #: [phone] Exam Date: 07/21/2018 1423 FAX #: [phone] Reason: PRE OP EXAMS: CPT CODE: [id number] XR CHEST 2 V [id number] REASON FOR EXAM: PRE OP Exam Order Date: 07/21/2018 1:55 PM Ordering Phil: Payal Cowart MD PROCEDURE: - XR CHEST 2 V COMPARISON: 09/27/2017 FINDINGS: PA and lateral views of the chest show clear lungs without evidence of consolidation. No evidence of effusion. The heart size is within normal limits. Pulmonary vasculatures are unremarkable. The osseous structures are grossly intact. IMPRESSION: Chronic interstitial disease most prominent at the bases at 1434 Reported and signed by: Derek Graf M.D. CC: Payal Cowart MD; Jaren Miranda Technologist: MARIAN DIAZ RT (R) Trnscrd Date/Time/By: 07/21/2018 (4073) : By: AceL Orig Print D/T: S: 07/21/2018 ([id number]) PAGE 1 Signed Report
[2018-11-06 11:40] VITALS: BP 114/69
--- NOTE | 2018-11-06 16:57 | Operative Report ---
DATE OF PROCEDURE: 11/06/2018 SURGEON: Tacho Dubose MD PREOPERATIVE DIAGNOSIS: Left inguinal hernia. POSTOPERATIVE DIAGNOSIS: Left inguinal hernia. OPERATION PERFORMED: Repair of left inguinal hernia with extended Prolene hernia system. COST CONTROL SPECIALIST: LEE Calvert. ANESTHESIA: General. COMPLICATIONS: None. ESTIMATED BLOOD LOSS: Minimal. PROCEDURE IN DETAIL: With the patient lying in bed in the supine position under good general anesthesia, the abdomen was prepped with Betadine solution and draped in the usual manner. A left inguinal incision was made. It was carried down through the subcutaneous tissue down to the external oblique aponeurosis. External oblique was opened along the length of its fibers and the external inguinal ring was opened. The cord was then mobilized and retracted. Exploration of the cord then revealed a large indirect hernia sac, which extended all the way up to the scrotum. This was from the cord structures and all the contents were reduced back to the intraabdominal cavity. High ligation of the sac was then achieved with a pursestring suture of 2-0 silk tie. The excess was resected. The preperitoneal space was then entered and a pocket was created without any difficulty. An extended Prolene hernia system was then placed in the preperitoneal space and the underlay patch was deployed without any problems. The overlay patch was then placed over the floor and split inferolaterally to allow for passage of the cord. The mesh was then sutured to the conjoint tendon and the inguinal ligament using interrupted sutures of 2-0 Vicryl. All layers were infiltrated on the way out with solution of 0.25% Marcaine and 1% Xylocaine mixed in equal parts. The external oblique aponeurosis was closed with a running suture of 2-0 Vicryl, the subcutaneous tissue was approximated with 3-0 plain, and the skin was closed with subcuticular 5-0 Vicryl. Benzoin, Steri-Strips and dressings were applied. The sponge, lap, and needle count was correct. The patient tolerated the procedure well and returned to the recovery room in stable condition. Tacho Dubose MD JLR/MODL /[id number]
== END | disposition home or self-care (01) ==
LOC: OR 06:05
PROVIDERS: ATTEND Surgery
DX: K40.90 Unilateral inguinal hernia, without obstruction or gangrene, not specified as recurrent (principal); I10 Essential (primary) hypertension; E11.9 Type 2 diabetes mellitus without complications; I25.810 Atherosclerosis of coronary artery bypass graft(s) without angina pectoris; I44.0 Atrioventricular block, first degree; E78.5 Hyperlipidemia, unspecified; N40.0 Benign prostatic hyperplasia without lower urinary tract symptoms; Z01.810 Encounter for preprocedural cardiovascular examination; Z01.812 Encounter for preprocedural laboratory examination; Z01.818 Encounter for other preprocedural examination; Z79.4 Long term (current) use of insulin; Z79.02 Long term (current) use of antithrombotics/antiplatelets; Z79.82 Long term (current) use of aspirin; Z79.84 Long term (current) use of oral hypoglycemic drugs; Z95.1 Presence of aortocoronary bypass graft
CPT/HCPCS: 36415 ×2; 49505; 71046; 80048; 82948; 85025; 93005; C1781; J1100; J2001 ×2; J2250; J2370; J2405; J2704; J3490; J3010

== ENCOUNTER 2021-12-12 11:08 | Emergency (ER) | payer BC, MEDICARE ==
[~2021-12-12] VITALS: Ht 182.9 cm; Wt 111.1 kg
[~2021-12-12 11:08] MED LIST changes: -BUPIVACAINE 0.25%/EPI 30ML SDV INJ ONE; +CLOTRIMAZOLE-BE15 GM; -DEXAMETHASONE SOD PHOS INJ 4 MG/ML VIAL ONE; -FENTANYL CITRATE/PF 100MCG/2 ML INJ ONE; -GLYCOPYRROLATE INJ 1MG/ 5 ML SYR ONE; -HYDROCODONE/APAP 7.5MG-325MG 1 EA TAB ONE; -IBUPROFEN 800MG/ 250ML 250 ML IV ONE; -LIDOCAINE HCL 1% LOCAL INJ 20 ML VIAL ONE; -LIDOCAINE HCL 2% LOCAL INJ 5 ML SDV VIAL INJ ONE; -MIDAZOLAM HCL 2 MG/2 ML VIAL ONE; -NEOSTIGMINE 5 MG/5ML SYR ONE; -ONDANSETRON HCL INJ 2MG/ML 2ML 2 MG/ML VIAL ONE; -PHENYLEPHRINE HCL 1% 10 MG/ML VIAL ONE; -PROPOFOL IV EMULSION 10 MG/ML 20 ML VIAL ONE; -SEVOFLURANE INHAL SOLN 250 ML PEN BTL ONE
[2021-12-12] MEDS ORDERED: OXYMETAZOLINE HCL 0.05% NAS 1 SPRAY BTL ONE (11:15)
[2021-12-12] MEDS ORDERED: TRANEXAMIC ACID 1,000 MG/10 ML ML INJ STA (12:48)
== END 2021-12-12 14:10 | disposition home or self-care (01) ==
LOC: ER 11:14
DX: R04.0 Epistaxis (principal); I10 Essential (primary) hypertension; E11.9 Type 2 diabetes mellitus without complications; E78.5 Hyperlipidemia, unspecified; I25.10 Atherosclerotic heart disease of native coronary artery without angina pectoris; F41.9 Anxiety disorder, unspecified; I25.2 Old myocardial infarction; Z95.1 Presence of aortocoronary bypass graft
CPT/HCPCS: 99283

== ENCOUNTER → 2024-04-07 | Day surgery (SDC) | payer BC, MEDICARE ==
[2024-03-30 09:15] LABS: BASOPHILS % 0.6 % (0.0-1.0); EOSINOPHILS # (AUTO) 0.4 (0.0-0.4); EOSINOPHILS % 5.5 % (0.0-6.0); HEMATOCRIT 38.1 % (38.2-49.6); LYMPHOCYTES # (AUTO) 2.2 (1.0-3.2); MEAN CORPUSCULAR HEMOGLOBIN 29.9 pg (28-32); MEAN CORPUSCULAR HGB CONC 31.5 g/dL (31-35); MONOCYTES # (AUTO) 0.5 (0.2-0.8); MONOCYTES % 6.8 % (4.4-11.3); NEUTROPHILS # (AUTO) 3.8 (2.1-6.9); NEUTROPHILS % 54.8 % (38.7-80.0); PLATELET COUNT 194 x10e3/uL (140-360); RED BLOOD COUNT 4.01 x10e6/uL (4.3-5.7); RED CELL DISTRIBUTION WIDTH 12.7 % (11.7-14.4); WHITE BLOOD COUNT 6.87 x10e3/uL (4.8-10.8)
[~2024-04-07] MED LIST changes: +HYOSCYAMINE SULFATE 0.5 MG/ML INJ ONE; +LIDOCAINE HCL 2% LOCAL INJ 5 ML SDV VIAL INJ ONE; +LIPITOR20 MG PO; +METFORMIN HCL500 M1 PO; +METFORMIN HCL500 MG PO; +METFORMIN HCL850 MG PO; +METHENAMINE MAND1 GM PO; +ONE A DAY GUMMIES; +OZEMPIC0.25 MG/02; +PROPOFOL IV EMULSION 10 MG/ML 20 ML VIAL ONE
[2024-04-07] MEDS: LACTATED RINGER'S 1,000 ML ONE (08:01)
[2024-04-07 09:05] VITALS: BP 101/75; PULSE 102; RESP 16; TEMP 97.2; O2SAT 96
== END | disposition home or self-care (01) ==
LOC: OR 07:02
PROVIDERS: ATTEND Internal Medicine Gastroenterology
DX: Z09 Encounter for follow-up examination after completed treatment for conditions other than malignant neoplasm (principal); Z86.0100 Personal history of colon polyps, unspecified; K57.30 Diverticulosis of large intestine without perforation or abscess without bleeding; K64.8 Other hemorrhoids; G47.33 Obstructive sleep apnea (adult) (pediatric); E11.9 Type 2 diabetes mellitus without complications; I10 Essential (primary) hypertension; E78.5 Hyperlipidemia, unspecified; Z01.810 Encounter for preprocedural cardiovascular examination; Z01.812 Encounter for preprocedural laboratory examination; Z79.82 Long term (current) use of aspirin; Z79.02 Long term (current) use of antithrombotics/antiplatelets; Z79.84 Long term (current) use of oral hypoglycemic drugs; Z79.85 Long-term (current) use of injectable non-insulin antidiabetic drugs; Z79.899 Other long term (current) drug therapy
CPT/HCPCS: 36415; 45378; 85025; 93005; J1980; J2003; J2704; J7121